=== PATIENT | male | born 1995 | race Two or more races ===

== ENCOUNTER 2018-11-23 20:18 | Emergency (ER) | payer OTHER ==
[2018-11-23 20:29] VITALS: BP 111/72; PULSE 71; TEMP 97.5; BMI 22.1
--- NOTE | 2018-11-23 21:26 | PDOC ---
History of Present Illness - General Chief Complaint: Pain, Acute Stated Complaint: SWOLLEN LT LEG Time Seen by Provider: 11/23/18 21:07 History Source: Patient Exam Limitations: No Limitations Past History - Past Medical History Allergies/Adverse Reactions: Allergies Allergy/AdvReac Type Severity Reaction Status Date / Time No Known Allergies Allergy Verified 09/09/15 11:32 Home Medications: Ambulatory Orders Fluticasone Prop 0.05% Nasal [Flonase -] 1 - 2 spray NS BID #1 spray.pump Loratadine [Claritin] 10 mg PO DAILY #14 tablet 05/01/18 COPD: No - Suicide/Smoking/Psychosocial Hx Smoking Status: No Smoking History: Never smoked Number of Cigarettes Smoked Daily: 0 Hx Alcohol Use: No Drug/Substance Use Hx: No *Physical Exam - Vital Signs Last Vital Signs Temp Pulse Resp BP Pulse Ox 97.5 F L 71 20 111/72 98 11/23/18 20:26 11/23/18 20:26 11/23/18 20:26 11/23/18 20:26 11/23/18 20:26 - Physical Exam General Appearance: No: Apparent Distress Extremity: positive: Normal Range of Motion, Other (Mild L prepatellar swelling , no erythema, no warmth, able to flex and extend L knee, no crepitus, no joint tenderness). negative: Calf Tenderness, Erythema Integumentary: positive: Normal Color. negative: Erythema, Bruising Neurologic: positive: Alert, Other (Normal gait) Moderate Sedation - Procedure Monitoring Vital Signs: Procedure Monitoring Vital Signs Temperature 97.5 F L 11/23/18 20:26 Pulse Rate 71 11/23/18 20:26 Respiratory Rate 20 11/23/18 20:26 Blood Pressure 111/72 11/23/18 20:26 O2 Sat by Pulse Oximetry (%) 98 11/23/18 20:26 Medical Decision Making - Medical Decision Making 23 y/o M presents with L knee swelling x 2-3 hours. Denies trauma to site. Denies fever. Has minimal pain to L knee. Mentions he does play basketball and soccer. Denies other complaints PE consistent with prepatellar bursitis; not concerned for gout or septic arthritis L knee janusz-wrapped patient did not want any pain medications 11/23/18 21:22 *DC/Admit/Observation/Transfer Diagnosis at time of Disposition: Prepatellar bursitis Qualifiers: Laterality: left Qualified Code(s): M70.42 - Prepatellar bursitis, left knee - Discharge Dispostion Disposition: HOME Condition at time of disposition: Stable Decision to Admit order: No - Referrals Referrals: Del Dunn MD [Primary Care Provider] - 3 days - Patient Instructions Printed Discharge Instructions: DI for Bursitis Additional Instructions: Thank you for choosing [facility]. It was a pleasure taking care of you. Recommend using the janusz-wrap to help decrease the swelling. You may take Motrin 600 mg every 4 hours by mouth as needed for mild to moderate pain. Take Motrin with food. The Motrin will also help decrease the swelling. Applying cool compresses and keeping knee elevated above level of heart to help with swelling Return to the Emergency Department if your symptoms worsen or persist, you have fever, redness or warmth to joint or other concerning symptoms. - Post Discharge Activity
== END 2018-11-23 21:35 | disposition home or self-care (01) ==
LOC: JERFT 20:18
DX: M70.42 Prepatellar bursitis, left knee (principal)
CPT/HCPCS: 99281-25

== ENCOUNTER 2019-01-28 14:32 | Emergency (ER) | payer OTHER ==
[2019-01-28 14:42] VITALS: BP 115/70; PULSE 111; TEMP 98.9; BMI 22.1
[2019-01-28] MEDS ORDERED: KETOROLAC TROMETHAMINE 60 MG/2 ML VIAL IM ONE (15:10)
--- NOTE | 2019-01-28 15:13 | PDOC ---
History of Present Illness - General Chief Complaint: Weakness Stated Complaint: FLU SYMPTOMS Time Seen by Provider: 01/28/19 14:49 History Source: Patient Exam Limitations: No Limitations (bodyaches, fever and headache since last night ) - History of Present Illness Associated Symptoms: reports: fever/chills, headaches. denies: cough, nausea/ vomiting Past History - Travel Traveled outside of the country in the last 30 days: No Close contact w/someone who was outside of country & ill: No - Past Medical History Allergies/Adverse Reactions: Allergies Allergy/AdvReac Type Severity Reaction Status Date / Time No Known Allergies Allergy Verified 01/28/19 14:42 Home Medications: Ambulatory Orders NK [No Known Home Medication] 01/28/19 COPD: No Psychiatric Problems: Yes (SCHIZOPHRENIA) - Suicide/Smoking/Psychosocial Hx Smoking Status: No Smoking History: Never smoked Number of Cigarettes Smoked Daily: 0 Hx Alcohol Use: No Drug/Substance Use Hx: No Review of Systems - Review of Systems Is the patient limited Lao proficient: No Constitutional: Yes: Chills, Fever HEENTM: Yes: Throat Pain. No: Ear Discharge, Nose Pain, Nose Congestion, Throat Swelling, Mouth Pain, Difficulty Swallowing, Mouth Swelling Respiratory: Yes: Cough. No: Orthopnea, Shortness of Breath, Wheezing, Productive cough Cardiac (ROS): No: Chest Pain ABD/GI: No: Abdominal Distended, Nausea, Vomiting Musculoskeletal: Yes: Muscle Pain. No: Back Pain Neurological: Yes: Headache. No: Numbness, Paresthesia, Tingling, Weakness, Dizziness *Physical Exam - Vital Signs Last Vital Signs Temp Pulse Resp BP Pulse Ox 98.9 F 111 H 20 115/70 97 01/28/19 14:40 01/28/19 14:40 01/28/19 14:40 01/28/19 14:40 01/28/19 14:40 - Physical Exam General Appearance: Yes: Nourished HEENT: positive: EOMI, JOYCE, Pharyngeal Erythema Neck: positive: Supple Respiratory/Chest: positive: Lungs Clear, Normal Breath Sounds Cardiovascular: positive: Regular Rhythm, Regular Rate, S1, S2, Tachycardia Gastrointestinal/Abdominal: positive: Normal Bowel Sounds, Soft Musculoskeletal: positive: Normal Inspection 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 Patient also would try cough. He denies any nausea vomiting shortness of breath dizziness Rapid strep/flu pending 01/28/19 17:11 Rapid flu and strep neg pt tachycardic in ED, appears dry drank a pitcher of water very fast in ED, pt became nauseous, no vomiting, zofran given Reassessed, was albe to drink again and ate snacks in ED prelim cxr no PNA will discharge 01/28/19 19:53 *DC/Admit/Observation/Transfer Diagnosis at time of Disposition: Viral syndrome - Discharge Dispostion Disposition: HOME Condition at time of disposition: Stable Decision to Admit order: No - Referrals Referrals: Del Dunn MD [Primary Care Provider] - - Patient Instructions Additional Instructions: Your strep and influenza testing was negative today please follow up with your primary care doctor return to the Emergency Department if worsening symptoms occurs - Post Discharge Activity
[2019-01-28] MEDS ORDERED: KETOROLAC TROMETHAMINE 60 MG/2 ML VIAL ONE (15:21)
[2019-01-28] MEDS ORDERED: ONDANSETRON *ODT* 4 MG TABLET SL ONE (16:11)
[2019-01-28] MEDS ORDERED: ONDANSETRON *ODT* 4 MG TABLET ONE (16:14)
== END 2019-01-28 17:25 | disposition home or self-care (01) ==
LOC: JERFT 14:32
PROC: 3E0233Z Introduction of Anti-inflammatory into Muscle, Percutaneous Approach (ICD-10-PCS; principal; 2019-01-28)
DX: B34.9 Viral infection, unspecified (principal)
CPT/HCPCS: 71046-TC-FY; 87070; 87804; 87880; 99281-25; Q0162

== ENCOUNTER 2019-02-28 16:31 | Emergency (ER) | payer OTHER ==
--- NOTE | 2019-02-28 16:38 | PDOC ---
Rapid Medical Evaluation Chief Complaint: RX Refill Time Seen by Provider: 02/28/19 16:35 Medical Evaluation: Allergies Allergy/AdvReac Type Severity Reaction Status Date / Time No Known Allergies Allergy Verified 01/28/19 14:42 02/28/19 16:36 I have performed a brief in person evaluation of the patient. The patient presents with CC: Pt here for Risperdal injection as his psychiatrist is out of town. HPI: See above PE: Skin: Clear, no rash HEENT: Oropharynx clear Lungs: Mild expiratory wheezing Heart: RRR MS: Moves all extremities Neuro: Alert Psych: No SI, No HI The patient will proceed to [facility] for further evaluation. Discharge Disposition - Diagnosis Medication administered - Referrals Referrals: Del Dunn MD [Primary Care Provider] - - Patient Instructions - Post Discharge Activity
--- NOTE | 2019-02-28 16:43 | PDOC ---
History of Present Illness - General Chief Complaint: RX Refill Stated Complaint: INJECTION Time Seen by Provider: 02/28/19 16:35 History Source: Patient - History of Present Illness Initial Comments: See RME note. Pt was given the Risperdal injection by nurse at triage. Pt states his last injection was 2 weeks ago. Pt was held in the ED for 20 minutes and there were no signs of anaphylaxis or allergic reaction. 02/28/19 16:40 Past History - Past Medical History Allergies/Adverse Reactions: Allergies Allergy/AdvReac Type Severity Reaction Status Date / Time No Known Allergies Allergy Verified 01/28/19 14:42 Home Medications: Ambulatory Orders NK [No Known Home Medication] 01/28/19 COPD: No Psychiatric Problems: Yes (SCHIZOPHRENIA) - Suicide/Smoking/Psychosocial Hx Smoking Status: No Smoking History: Never smoked Number of Cigarettes Smoked Daily: 0 Hx Alcohol Use: No Drug/Substance Use Hx: No *DC/Admit/Observation/Transfer Diagnosis at time of Disposition: Medication administered - Discharge Dispostion Disposition: HOME Condition at time of disposition: Good - Referrals Referrals: Del Dunn MD [Primary Care Provider] - - Patient Instructions Printed Discharge Instructions: Schizophrenia Additional Instructions: F/U with your psychiatrist. - Post Discharge Activity
[2019-02-28 16:49] VITALS: BP 106/62; PULSE 71; TEMP 98.2; BMI 20.7
== END 2019-02-28 17:01 | disposition home or self-care (01) ==
LOC: JER 16:31
DX: Z79.899 Other long term (current) drug therapy (principal); F20.9 Schizophrenia, unspecified
CPT/HCPCS: 99281-25

== ENCOUNTER 2019-04-19 17:29 | Emergency (ER) | payer OTHER | END 2019-04-19 18:20 | disposition home or self-care (01) | LOC: JER 17:29 → JERFT 18:20 ==

== ENCOUNTER 2019-10-10 01:46 | Emergency (ER) | payer OTHER ==
[2019-10-10 02:45] VITALS: BP 132/67; PULSE 82; TEMP 98.6; BMI 24.0
--- NOTE | 2019-10-10 03:14 | PDOC ---
*Physical Exam - Vital Signs Last Vital Signs Temp Pulse Resp BP Pulse Ox 98.6 F 82 17 132/67 98 10/10/19 01:46 10/10/19 01:46 10/10/19 01:46 10/10/19 01:46 10/10/19 01:46 Medical Decision Making - Medical Decision Making 10/10/19 03:13 Patient seen by the advanced practice provider under my direct supervision. Ancillary testing reviewed as necessary. I agree with plan as outlined by the advanced practice provider. Discharge - Discharge Information Condition: Fair - Follow up/Referral Referrals: Del Dunn MD [Primary Care Provider] - - Patient Discharge Instructions - Post Discharge Activity
--- NOTE | 2019-10-10 03:18 | PDOC ---
History of Present Illness - General Chief Complaint: Cold Symptoms Stated Complaint: COUGH Time Seen by Provider: 10/10/19 03:08 History Source: Patient - History of Present Illness Initial Comments: 10/10/19 [id number] male complaining of cough for the last week. Patient reports that initially he had a fever denies fever at this time. Overall feeling better except for the frequent cough. Denies chest congestion, wheezing , shortness of breath. Past medical history psychiatric disorder currently on Risperdal Past History - Past Medical History Allergies/Adverse Reactions: Allergies Allergy/AdvReac Type Severity Reaction Status Date / Time No Known Allergies Allergy Verified 10/10/19 02:45 Home Medications: Ambulatory Orders Ibuprofen [Motrin -] 600 mg PO TID PRN 04/19/19 Naproxen [Naprosyn -] 500 mg PO BID #30 tablet 04/19/19 Benzonatate [Tessalon Pearls -] 100 mg PO TID PRN #21 capsule 10/10/19 Guaifenesin [Mucinex -] 600 mg PO BID #14 tablet.er 10/10/19 COPD: No Psychiatric Problems: Yes (SCHIZOPHRENIA) - Psycho Social/Smoking Cessation Hx Smoking Status: No Smoking History: Never smoked Number of Cigarettes Smoked Daily: 0 Information on smoking cessation initiated: No Hx Alcohol Use: No Drug/Substance Use Hx: No Review of Systems - Review of Systems Able to Perform ROS?: Yes Is the patient limited Guyanese proficient: No Constitutional: No: Symptoms Reported, See HPI, Chills, Diaphoresis, Fever, Loss of Appetite, Malaise, Night Sweats, Weakness, Weight Stable, Unintentional Wgt. Loss, Unexplained wgt Loss, Other Respiratory: Yes: Cough. No: Symptoms reported, See HPI, Orthopnea, Shortness of Breath, SOB with Exertion, SOB at Rest, Stridor, Wheezing, Productive cough, Hemoptysis, Other *Physical Exam - Vital Signs Last Vital Signs Temp Pulse Resp BP Pulse Ox 98.6 F 82 17 132/67 98 10/10/19 01:46 10/10/19 01:46 10/10/19 01:46 10/10/19 01:46 10/10/19 01:46 - Physical Exam General Appearance: Yes: Appropriately Dressed HEENT: positive: Normal ENT Inspection Respiratory/Chest: positive: Lungs Clear, Normal Breath Sounds Cardiovascular: positive: Regular Rhythm, Regular Rate Gastrointestinal/Abdominal: positive: Normal Bowel Sounds, Soft. negative: Tender Musculoskeletal: positive: Normal Inspection Extremity: positive: Normal Capillary Refill, Normal Inspection, Normal Range of Motion Integumentary: positive: Normal Color, Dry, Warm Neurologic: positive: Fully Oriented, Alert, Normal Mood/Affect Medical Decision Making - Medical Decision Making UTI with cough P: antitussive/ supportive care Discharge - Discharge Information Problems reviewed: Yes Clinical Impression/Diagnosis: Cough URI (upper respiratory infection) Qualifiers: URI type: unspecified viral URI Qualified Code(s): J06.9 - Acute upper respiratory infection, unspecified Condition: Fair Disposition: HOME - Additional Discharge Information Prescriptions: Benzonatate [Tessalon Pearls -] 100 mg PO TID PRN #21 capsule PRN Reason: Cough Guaifenesin [Mucinex -] 600 mg PO BID #14 tablet.er - Follow up/Referral Referrals: Del Dunn MD [Primary Care Provider] - - Patient Discharge Instructions Patient Printed Discharge Instructions: DI for Common Cold Additional Instructions: Drink plenty of fluids. Take Mucinex as prescribed. Gargle with warm salty water. Drink hot/warm liquids. Taking Tessalon Perles as prescribed for cough. Follow-up with your primary doctor as soon as possible. - Post Discharge Activity Work/Back to School Note: Back to Work
== END 2019-10-10 04:04 | disposition home or self-care (01) ==
LOC: JER 01:46
DX: F20.9 Schizophrenia, unspecified (principal); J06.9 Acute upper respiratory infection, unspecified
CPT/HCPCS: 99281-25

== ENCOUNTER 2020-07-08 17:59 | Emergency (ER) | payer OTHER ==
--- NOTE | 2020-07-08 18:09 | PDOC ---
Rapid Medical Evaluation Time Seen by Provider: 07/08/20 18:07 Medical Evaluation: Allergies Allergy/AdvReac Type Severity Reaction Status Date / Time risperidone [From Risperdal] Allergy Verified 07/08/20 18:06 07/08/20 18:07 24 year old male unknown psych hx complaining of fatigue, extremely poor historian PE: WNL A/P: Differed to provider Pt to precede to ED for further evaluation and treatment.
[2020-07-08 18:15] VITALS: BP 109/71; PULSE 72; TEMP 98.4; BMI 21.8
--- NOTE | 2020-07-08 19:10 | PDOC ---
History of Present Illness - General Chief Complaint: Weakness Stated Complaint: FATIGUE Time Seen by Provider: 07/08/20 18:07 History Source: Patient - History of Present Illness Initial Comments: 07/08/20 20:5 24-year-old male reports fatigue today patient reports that he received a Risperdal IM today. Patient has been getting Risperdal IM every 2 weeks for the last 1 year. Patient reports that his fatigue is due to his home environment. Patient reports fatigue has resolved now since being in the ER. Denies palpitations, chest pain, dizziness, respiratory distress. Patient has a past medical history of psychosis currently in treatment at [facility]. Denies SI and HI Past History - Medical History Allergies/Adverse Reactions: Allergies Allergy/AdvReac Type Severity Reaction Status Date / Time risperidone [From Risperdal] Allergy Verified 07/08/20 18:06 Home Medications: Ambulatory Orders NK [No Known Home Medication] 03/11/20 COPD: No Psychiatric Problems: Yes (SCHIZOPHRENIA) - Psycho-Social/Smoking History Smoking Status: No Smoking History: Never smoked Number of Cigarettes Smoked Daily: 0 - Substance Abuse Hx (Audit-C & DAST Scrn) How often the patient has a drink containing alcohol: Never Score: In Men: 4 or > Positive; In Women: 3 or > Positive: 0 Screen Result (Pos requires Nsg. Audit-10AR): Negative In the last yr the pt used illegal drug/Rx for NonMed reason: No Score: Yes response is considered Positive: 0 Screen Result (Positive result requires Nsg. DAST-10): Negative Review of Systems - Review of Systems Able to Perform ROS?: Yes Is the patient limited Serbian proficient: No Constitutional: Yes: Other (fatigue). No: Symptoms Reported, See HPI, Chills, Diaphoresis, Fever, Loss of Appetite, Malaise, Night Sweats, Weakness, Weight Stable, Unintentional Wgt. Loss, Unexplained wgt Loss Psychiatric: No: Anxiety, Depression, Frequent Crying, Stressors, Sleep Pattern Change, Emotional Problems, Mood Swings, Change in Appetite, Other *Physical Exam - Vital Signs Last Vital Signs Temp Pulse Resp BP Pulse Ox 98.4 F 72 20 109/71 100 07/08/20 18:06 07/08/20 18:06 07/08/20 18:06 07/08/20 18:06 07/08/20 18:06 - Physical Exam General Appearance: Yes: Appropriately Dressed, Other (+ eye contact) Respiratory/Chest: positive: Lungs Clear, Normal Breath Sounds Cardiovascular: positive: Regular Rhythm, Regular Rate Gastrointestinal/Abdominal: positive: Normal Bowel Sounds, Soft. negative: T batool Neurologic: positive: Fully Oriented, Alert ED Treatment Course - LABORATORY CBC & Chemistry Diagram: 07/08/20 20:38 07/08/20 20:38 Medical Decision Making - Medical Decision Making 07/08/20 20:54 A: kayla P: EKG LAbs 07/08/20 20:56 Discharge - Discharge Information Problems reviewed: Yes Clinical Impression/Diagnosis: Fatigue Qualifiers: Fatigue type: unspecified Qualified Code(s): R53.83 - Other fatigue Disposition: HOME - Follow up/Referral Referrals: Velma Lambert MD [Primary Care Provider] - - Patient Discharge Instructions Patient Printed Discharge Instructions: DI for Fatigue Additional Instructions: Please follow-up with your psychiatrist as soon as possible. Return to the emergency room for any worsening symptoms - Post Discharge Activity
--- NOTE | 2020-07-08 19:22 | PDOC ---
*Physical Exam - Vital Signs Last Vital Signs Temp Pulse Resp BP Pulse Ox 98.4 F 72 20 109/71 100 07/08/20 18:06 07/08/20 18:06 07/08/20 18:06 07/08/20 18:06 07/08/20 18:06 ED Treatment Course - LABORATORY CBC & Chemistry Diagram: 07/08/20 20:38 07/08/20 20:38 Medical Decision Making - Medical Decision Making 07/08/20 19:22 Patient seen by the advanced practice provider under my supervision. Ancillary testing reviewed as necessary. I agree with plan as outlined by the advanced practice provider. Discharge - Discharge Information Problems reviewed: Yes Clinical Impression/Diagnosis: Fatigue Qualifiers: Fatigue type: unspecified Qualified Code(s): R53.83 - Other fatigue Disposition: HOME - Follow up/Referral Referrals: Velma Lambert MD [Primary Care Provider] - - Patient Discharge Instructions Patient Printed Discharge Instructions: DI for Fatigue Additional Instructions: Please follow-up with your psychiatrist as soon as possible. Return to the emergency room for any worsening symptoms - Post Discharge Activity
[2020-07-08 21:02] LABS: BASO % 0.5 % (0-2.0); EOS % 1.2 % (0-4.5); HEMATOCRIT 42.9 % (35.4-49); HEMOGLOBIN 14.4 GM/dL (11.7-16.9); LYMPH % 41.9 % (8-40); MCH 29.7 pg (25.7-33.7); MCHC 33.6 g/dl (32.0-35.9); MEAN CELL VOLUME 88.5 fl (80-96); MEAN PLT VOLUME 10.9 fl (7.5-11.1); MONO % 9.2 % (3.8-10.2); NEUT % 47.2 % (42.8-82.8); PLATELET COUNT 135 K/MM3 (134-434); RBC 4.85 M/mm3 (4.00-5.60)
[2020-07-08 21:28] LABS: ALBUMIN 4.4 g/dl (3.4-5.0); BILIRUBIN,TOTAL 0.8 mg/dL (0.2-1); BLOOD UREA NITROGEN 14.4 mg/dL (7-18); CALCIUM 9.5 mg/dL (8.5-10.1); CREATININE 0.8 mg/dL (0.55-1.3); MAGNESIUM 2.3 mg/dL (1.8-2.4); POTASSIUM 3.9 mmol/L (3.5-5.1); TOT PROT 7.9 g/dl (6.4-8.2)
--- NOTE | 2020-07-09 10:05 | EKG ---
Test Reason : Blood Pressure : / mmHG Vent. Rate : 058 BPM Atrial Rate : 058 BPM P-R Int : 128 ms QRS Dur : 088 ms QT Int : 408 ms P-R-T Axes : 048 029 035 degrees QTc Int : 400 ms SINUS BRADYCARDIA OTHERWISE NORMAL ECG NO PREVIOUS ECGS AVAILABLE Confirmed by MD Ru, Jethro ([id number]) on 07/09/2020 10:04:50 AM Referred By: Confirmed By:Jethro Vences MD
== END 2020-07-08 22:30 | disposition home or self-care (01) ==
LOC: JER 17:59 → SUPCPDRO 17:59 → JER 22:30
DX: R53.83 Other fatigue (principal)
CPT/HCPCS: 36415; 80053; 83690; 83735; 85025; 93005; 93010; 99284-25

== ENCOUNTER 2020-07-15 00:16 | Emergency (ER) | payer OTHER ==
[2020-07-15 00:34] VITALS: PULSE 68; TEMP 97.4; BMI 22.1
--- NOTE | 2020-07-15 01:16 | PDOC ---
History of Present Illness - General Chief Complaint: Chest Pain Stated Complaint: CHEST PAIN Time Seen by Provider: 07/15/20 01:10 - History of Present Illness Initial Comments: 07/15/20 01:44 24yo M w/ PMH unspecified schizophrenia on risperidone and trihexylphenidyl p/w chest pain since 8pm tonight. He said the pain started gradually over his sternum and right anterior chest and is now constant at about 4/10 severity. It is a pressure, not made worse or better by anything, and he has never had this before. Denies heart disease, palpitations, HTN, n/v, leg pain, recent travel, fever, cough, rash, or recent illness. Past History - Medical History Allergies/Adverse Reactions: Allergies Allergy/AdvReac Type Severity Reaction Status Date / Time risperidone [From Risperdal] Allergy Verified 07/15/20 00:34 Home Medications: Ambulatory Orders NK [No Known Home Medication] 03/11/20 COPD: No Psychiatric Problems: Yes (SCHIZOPHRENIA) - Psycho-Social/Smoking History Smoking Status: No Smoking History: Never smoked Number of Cigarettes Smoked Daily: 0 Information on smoking cessation initiated: No - Substance Abuse Hx (Audit-C & DAST Scrn) How often the patient has a drink containing alcohol: Never Score: In Men: 4 or > Positive; In Women: 3 or > Positive: 0 Screen Result (Pos requires Nsg. Audit-10AR): Negative In the last yr the pt used illegal drug/Rx for NonMed reason: No Score: Yes response is considered Positive: 0 Screen Result (Positive result requires Nsg. DAST-10): Negative Review of Systems - Review of Systems Able to Perform ROS?: Yes Is the patient limited Malagasy proficient: No Constitutional: No: Chills, Diaphoresis, Fever, Loss of Appetite HEENTM: No: Eye Pain, Blurred Vision, Tearing Respiratory: Yes: Shortness of Breath. No: Cough Cardiac (ROS): No: Chest Pain, Lightheadedness, Palpitations, Syncope ABD/GI: No: Abdominal Distended, Constipated, Diarrhea, Nausea : No: Burning, Dysuria, Discharge Musculoskeletal: Yes: Back Pain Integumentary: No: Erythema, Rash Neurological: Yes: Weakness. No: Headache, Numbness, Paresthesia Endocrine: No: Symptoms Reported *Physical Exam - Vital Signs Last Vital Signs Temp Pulse Resp BP Pulse Ox 97.4 F L 68 18 110/65 99 07/15/20 00:31 07/15/20 00:31 07/15/20 00:31 07/15/20 00:07/15/20 00:31 - Physical Exam General Appearance: Yes: Nourished, Appropriately Dressed, Other (appears nervous) HEENT: positive: JOYCE, Normal Voice, Pharynx Normal. negative: Scleral Icterus (R), Scleral Icterus (L), Muffled/Hoarse voice, Nasal Congestion Neck: positive: Trachea midline, Supple. negative: Tender, Rigidity Respiratory/Chest: positive: Chest Tender, Lungs Clear, Normal Breath Sounds. negative: Respiratory Distress, Accessory Muscle Use, Rapid RR, Decreased Breath Sounds, Crackles, Rales, Rhonchi, Stridor, Wheezing Cardiovascular: positive: Regular Rhythm, Regular Rate, S1, S2 Gastrointestinal/Abdominal: positive: Normal Bowel Sounds. negative: Rebound Musculoskeletal: positive: Normal Inspection. negative: CVA Tenderness, CVA Tenderness (R), CVA Tenderness (L) Extremity: positive: Normal Capillary Refill, Normal Inspection Integumentary: positive: Normal Color, Dry, Warm Neurologic: positive: Fully Oriented, Alert, Motor Strength 5/5, Responsive Medical Decision Making - Medical Decision Making 07/15/20 01:44 07/15/20 01:13 24yo M h/o schizophrenia. On risperidone [id number] started on trihexylphenidyl last week. Had back pain relieved by trihexyphenidyl Recently cut it in half becuase "back pain resolved too quickly" 07/15/20 01:44 07/15/20 01:56 Discharge - Discharge Information Problems reviewed: Yes Clinical Impression/Diagnosis: Chest pain Qualifiers: Chest pain type: unspecified Qualified Code(s): R07.9 - Chest pain, unspecified Condition: Fair - Admission No - Follow up/Referral Referrals: Velma Lambert MD [Primary Care Provider] - - Patient Discharge Instructions Patient Printed Discharge Instructions: DI for Atypical Chest Pain Additional Instructions: You came to the ED with chest pain. We evaluated you and deemed you safe for discharge. Please follow up with your primary care doctor and your psychiatrist tomorrow or within 24hours of leaving the ED. Please come back to the ED with any severe symptoms. - Post Discharge Activity
--- NOTE | 2020-07-15 01:59 | PDOC ---
Documentation entered by Tomasa Syed SCRIBE, acting as scribe for Glenny Thibodeaux MD. Glenny Thibodeaux MD: This documentation has been prepared by the scribe, Tomasa Clements SCRIBE, under my direction and personally reviewed by me in its entirety. I confirm that the documentation accurately reflects all work, treatment, procedures, and medical decision making performed by me. Attending Attestation - Resident Resident Name: Jethro Abrams - ED Attending Attestation I have performed the following: I have examined & evaluated the patient, The case was reviewed & discussed with the resident, I agree w/resident's findings & plan, Exceptions are as noted - HPI HPI: 07/15/20 01:37 The patient is 24 a year old male with a significant PMH of schizophrenia (on risperidone once/motnh, started on trihexylphenidyl last week) who presents to the emergency department for evaluation of R sided non-exertional chest pain 4/10 in intensity. Unable to identify any aggravating or alleviating factors. The patient denies shortness of breath, headache and dizziness. Denies fever, chills, nausea, vomiting, diarrhea and constipation. Denies dysuria, frequency, urgency and hematuria. Allergies: NKA Social history: No reported hx of tobacco use, alcohol use or illicit drug use. - Physicial Exam PE: 07/15/20 01:57 General: very well appearing Chest: CTAB, good air entry, no wheezes rales or rhonchi CVS: + s1s2, RRR Extremities: warm and well perfused, no LE edema - Medical Decision Making 07/15/20 01:58 24 yo M p/w atypical chest pain, no FH sudden cardiac , doubt ACS and EKG without ischemic changes. Also unlikely PE and PERC negative. Likely msk pain. No infectious complaints to suggest PNA. Plan: -pain control as needed -d/c with return precautions, recommend PMD f/u This clinical encounter is taking place during a federal and state health care emergency attributable to the novel [place] Virus pandemic. The [employer] of the Department of Health and Human Services has declared, pursuant to the Public Health Service Act 319F-3 (42 U.S.C. 247d-6d), that a covered persons activities related to medical countermeasures against COVID-19 will be immune from liability under Federal and State law. Discharge - Discharge Information Problems reviewed: Yes Clinical Impression/Diagnosis: Chest pain Qualifiers: Chest pain type: unspecified Qualified Code(s): R07.9 - Chest pain, unspecified Condition: Fair - Follow up/Referral Referrals: Velma Lambert MD [Primary Care Provider] - - Patient Discharge Instructions - Post Discharge Activity
[2020-07-15] MEDS ORDERED: LIDOCAINE 5% TOPICAL PATCH TP ONE (02:20)
[2020-07-15 02:34] VITALS: BP 110/78
--- NOTE | 2020-07-15 10:37 | EKG ---
Test Reason : Blood Pressure : / mmHG Vent. Rate : 056 BPM Atrial Rate : 056 BPM P-R Int : 138 ms QRS Dur : 092 ms QT Int : 418 ms P-R-T Axes : 048 045 049 degrees QTc Int : 403 ms SINUS BRADYCARDIA OTHERWISE NORMAL ECG WHEN COMPARED WITH ECG OF 08-JUL-2020 19:34, NO SIGNIFICANT CHANGE WAS FOUND Confirmed by Prasanna Porter MD ([id number]) on 07/15/2020 10:36:35 AM Referred By: Confirmed By:Prasanna Porter MD
[2020-07-15] MEDS ORDERED: LIDOCAINE PATCH REMOVAL MC SCH (22:00)
== END 2020-07-15 02:34 | disposition home or self-care (01) ==
LOC: JER 00:16
DX: R07.9 Chest pain, unspecified (principal)
CPT/HCPCS: 93005; 93010; 99284-25

== ENCOUNTER 2020-07-26 13:56 | Emergency (ER) | payer OTHER ==
[2020-07-26 14:05] VITALS: BP 119/78; PULSE 78; BMI 24.7
--- NOTE | 2020-07-26 14:39 | PDOC ---
Attending Attestation - Resident Resident Name: Prasanna Perera - HPI HPI: 07/26/20 16:02 Pt presents to the ED complaining of feeling "disconnected" after he gets his biweekly risperdone shots. THe patient has a history of schizophrenia, and has been getting the shots for several months. He states that he has not discussed his concerns with his psychiatrist. He is asking for a change to his medication or dosage. Denies HI, SI or hallucinations. - Physicial Exam PE: 07/26/20 16:07 Agree with resident exam. PAtient is alert and in no acute distress. He is ambulatory in the ED with normal gait. He is slightly anxious, and has mild pressured speech. He is well groomed and goal directed in his thought processes. He denies SI, HI or auditory hallucinations. - Medical Decision Making 07/26/20 16:10 Pt presents to the ED complaining of feeling disconnected after depo risperdal given. The patient has no SI, HI or psychosis. Since he does not have a psychiatric emergency, we will refer him for pyschiatric follow up. Will instruct to return to the ED immediately for worsening symptoms. Discharge - Discharge Information Problems reviewed: Yes Clinical Impression/Diagnosis: Anxiety Schizophrenia Qualifiers: Schizophrenia type: unspecified Qualified Code(s): F20.9 - Schizophrenia, unspecified Condition: Stable Disposition: HOME - Follow up/Referral Referrals: Elsy Asif MD [Staff Physician] - Daly Schuster MD [Staff Physician] - Velma Lambert MD [Primary Care Provider] - - Patient Discharge Instructions Patient Printed Discharge Instructions: DI for Anxiety -- Adult, DI for Schizophrenia Additional Instructions: Please call your psychiatrist today and schedule a follow up appointment with them to discuss your concerns about the medications. Please continue taking your medications as prescribed. If you experience any new, worsening, or concerning symptoms, including thoughts of hurting yourself, hurting someone else, or any other concerns, please return to the emergency department immediately. - Post Discharge Activity Work/Back to School Note: My Personal Safety Plan
--- NOTE | 2020-07-26 15:09 | PDOC ---
History of Present Illness - General Chief Complaint: Psychiatric Stated Complaint: EVALUATION Time Seen by Provider: 07/26/20 14:38 - History of Present Illness Initial Comments: Matt Barr is a 25 y/o male with PMH significant for schizophrenia presenting today with concerns for psychomotor retardation, lethargy, fatigue. Reports that he was hospitalized for psych in April of this year and was diagnosed with schizophrenia. Reports that he was started on long-acting risperidone 25 mg [id number] since May. He is presenting today because he feels that his medications are causing him to feel fatigued, low energy, difficulty concentrating. Denies anxiety. Reports that he has not been as motivated to do activities but is able to care for himself. Lives at home with parents and sisters but "does not get along with them." Reports that he is upset at his mother for hospitalizing him in April. Feels that his psychiatrist does not listen to him and has an appt with a new one in 1 month. Denies SI/HI. Able to perform ADLs. Denies ETOH/smoking/drug use. Past History - Medical History Allergies/Adverse Reactions: Allergies Allergy/AdvReac Type Severity Reaction Status Date / Time risperidone [From Risperdal] AdvReac Verified 07/26/20 14:00 Home Medications: Ambulatory Orders Risperidone Microspheres [Risperdal Consta] 25 mg IM ASDIR 07/26/20 Trihexyphenidyl HCl 1 mg PO ASDIR 07/26/20 COPD: No Psychiatric Problems: Yes (SCHIZOPHRENIA) - Psycho-Social/Smoking History Smoking Status: No Smoking History: Unknown if ever smoked Number of Cigarettes Smoked Daily: 0 - Substance Abuse Hx (Audit-C & DAST Scrn) How often the patient has a drink containing alcohol: Never Score: In Men: 4 or > Positive; In Women: 3 or > Positive: 0 Screen Result (Pos requires Nsg. Audit-10AR): Negative In the last yr the pt used illegal drug/Rx for NonMed reason: No Score: Yes response is considered Positive: 0 Screen Result (Positive result requires Nsg. DAST-10): Negative Review of Systems - Review of Systems Comments:: GENERAL/CONSTITUTIONAL: No fever or chills. No weakness._ HEAD, EYES, EARS, NOSE AND THROAT: No change in vision. No change in hearing. No sore throat._ CARDIOVASCULAR: No chest pain or shortness of breath_ RESPIRATORY: Denies cough, hemoptysis_ MUSCULOSKELETAL: No joint or muscle swelling or pain. No neck or back pain._ SKIN: No rash_ NEUROLOGIC: No headache, vertigo, loss of consciousness, or change in strength/sensation._ ENDOCRINE: No increased thirst. No abnormal weight change_ ALLERGIC/IMMUNOLOGIC: No hives or skin allergy._ PSYCH: Reports psychomotor retardation, fatigue, difficulty concentrating. *Physical Exam - Vital Signs Last Vital Signs Temp Pulse Resp BP Pulse Ox 78 18 119/78 100 07/26/20 14:01 07/26/20 14:01 07/26/20 14:01 07/26/20 14:01 - Physical Exam GENERAL: Awake, alert, and oriented to person/place/time, in no acute distress_ HEAD: No signs of trauma, normocephalic, atraumatic _ ENT: Hearing grossly normal, nares patent, oropharynx clear without exudates. No uvular deviation. Moist mucosa_ LUNGS: No distress, speaks in full sentences, clear to auscultation bilaterally _ HEART: Regular rate and rhythm, normal S1 and S2, no murmurs appreciated, peripheral pulses normal and equal bilaterally._ ABDOMEN: Soft, nontender, normoactive bowel sounds. No guarding, no rebound. No masses_ EXTREMITIES: Normal inspection, Normal range of motion, no edema. No clubbing or cyanosis_ NEUROLOGICAL: Cranial nerves II through XII grossly intact. Normal speech, normal gait, no focal sensorimotor deficits _ SKIN: Warm, Dry, normal turgor, no rashes or lesions noted_ PSYCH: Appearance: Well kempt Behavior: Calm, good eye contact, in no acute distress Mood: tired, unable to concentrate Affect: Mood is congruent with affect. Speech: Appropriate rate, quantity. Soft. Thought process: Linear Thought content: Concerned about risperidone side effects making him tired and not as active. Denies SI/HI. Paranoid about mother and psychiatrist. Denies suicidal ideation/homicidal ideation. Cognition: Normal Insight: Poor Judgment: Good Medical Decision Making - Medical Decision Making 07/26/20 15:17 This is a 25 y/o male, recently hospitalized in April for psych, dx with schizophrenia, and started on risperidone long acting IM injections 25 mg q2 weeks in mid May. Comes in today reporting psychomotor retardation and le thargy, but is observed to be anxious, restless, and repeatedly getting up from the bed. No SI/HI. Able to care for himself at home. Lives with mom/dad/sister. Able to cook for himself and do laundry. Looking for a job. Pt would like a second opinion about his medication side effects and is paranoid about his psychiatrist. Will provide outpatient psych referrals and instructions to call his psychiatrist today to discuss medication side effects. Pt is safe for discharge at this time and able to care for himself. Plan to d/c home with psych f/u. All questions answered. Return precautions given. Pt verbalized understanding and agreement with plan. Discharge - Discharge Information Problems reviewed: Yes Clinical Impression/Diagnosis: Anxiety Schizophrenia Qualifiers: Schizophrenia type: unspecified Qualified Code(s): F20.9 - Schizophrenia, unspecified Condition: Stable Disposition: HOME - Admission No - Follow up/Referral Referrals: Elsy Asif MD [Staff Physician] - Daly Schuster MD [Staff Physician] - Velma Lambert MD [Primary Care Provider] - - Patient Discharge Instructions Patient Printed Discharge Instructions: DI for Anxiety -- Adult, DI for Schizophrenia Additional Instructions: Please call your psychiatrist today and schedule a follow up appointment with them to discuss your concerns about the medications. Please continue taking your medications as prescribed. If you experience any new, worsening, or concerning symptoms, including thoughts of hurting yourself, hurting someone else, or any other concerns, please return to the emergency department immediately. - Post Discharge Activity Work/Back to School Note: My Personal Safety Plan
== END 2020-07-26 15:20 | disposition home or self-care (01) ==
LOC: JER 13:56
DX: F20.9 Schizophrenia, unspecified (principal)
CPT/HCPCS: 99284-25

== ENCOUNTER 2020-08-17 18:50 | Emergency (ER) | payer OTHER ==
[2020-08-17 19:00] VITALS: BP 114/66; PULSE 62; TEMP 97.8; BMI 21.9
--- OUTSIDE RECORDS SUMMARY | 2020-08-17 19:09 | XMS ---
:1995 Author Organization [facility] Care Team Providers Name Role Phone ED STAFF PHYSICIANAISLINN Unavailable Unavailable Craig Vences MD Unavailable Unavailable La Vences MD Unavailable Unavailable La Vences MD Unavailable Unavailable La Vences MD Unavailable Unavailable La Vences MD Unavailable Unavailable La Vences MD Unavailable Unavailable La Vencse MD Unavailable Unavailable La Vences MD Unavailable Unavailable La Vences MD Unavailable Unavailable La Vences MD Unavailable Unavailable La Vences MD Unavailable Unavailable La Vences MD Unavailable Unavailable La Vences MD Unavailable Unavailable La Vences MD Unavailable Unavailable La Vences MD Unavailable Unavailable La Vences MD Unavailable Unavailable La Vences MD Unavailable Unavailable La Vences MD Unavailable Unavailable La Vences MD Unavailable Unavailable La Vences MD Unavailable Unavailable La Vences MD Unavailable Unavailable La Vences MD Unavailable Unavailable Vences, B Unavailable Unavailable Vences, B Unavailable Unavailable Vences, B MD Unavailable Unavailable Vences, B MD Unavailable Unavailable Vences, B MD Unavailable Unavailable Vences, B MD Unavailable Unavailable Vences, B MD Unavailable Unavailable Vences, B MD Unavailable Unavailable Vences, B MD Unavailable Unavailable Vences, B MD Unavailable Unavailable Vences, B MD Unavailable Unavailable Vences, B MD Unavailable Unavailable Vences, B MD Unavailable Unavailable Vences, B MD Unavailable Unavailable Vences, B MD Unavailable Unavailable Vences, B MD Unavailable Unavailable Vences, B MD Unavailable Unavailable Vecnes, B MD Unavailable Unavailable Vences, B MD Unavailable Unavailable Vences, B MD Unavailable Unavailable Vences, B MD Unavailable Unavailable Vences, B MD Unavailable Unavailable Vences, B MD Unavailable Unavailable Vences, B MD Unavailable Unavailable Vences, B MD Unavailable Unavailable Vences, B MD Unavailable Unavailable Vences, B MD Unavailable Unavailable Vences, B MD Unavailable Unavailable Vences, B MD Unavailable Unavailable Vences, B MD Unavailable Unavailable Vences, B MD Unavailable Unavailable Vences, B MD Unavailable Unavailable Vences, B MD Unavailable Unavailable Vences, B MD Unavailable Unavailable Vences, B MD Unavailable Unavailable Vences, B MD Unavailable Unavailable Vences, B Unavailable Unavailable Vences, B Unavailable Unavailable Vences, B Unavailable Unavailable Vences, B Unavailable Unavailable Vences, B Unavailable Unavailable Vences, B MD Unavailable Unavailable Vences, B MD Unavailable Unavailable Vences, B Unavailable Unavailable TAMY Unavailable Unavailable Maria De Jesus HICKMAN MD Unavailable Unavailable Maria De Jesus HICKMAN MD Unavailable Unavailable Maria De Jesus HICKMAN MD Unavailable Unavailable ED STAFF PHYSICIAN Unavailable Unavailable MD SONAM Unavailable Unavailable ED STAFF PHYSICIAN Unavailable Unavailable MD ALICIA Unavailable Unavailable Shanna Gomez DNP Unavailable Unavailable Shanna Gomez DNP Unavailable Unavailable Shanna Gomez DNP Unavailable Unavailable Shanna Gomez DNP Unavailable Unavailable ZUNASSIGNED Unavailable Unavailable KODY Morales Unavailable Unavailable Re-disclosure Warning The records that you are about to access may contain information from federally- assisted alcohol or drug abuse programs. If such information is present, then the following federally mandated warning applies: This information has been disclosed to you from records protected by federal confidentiality rules (42 CFR part 2). The federal rules prohibit you from making any further disclosure of this information unless further disclosure is expressly permitted by the written consent of the person to whom it pertains or as otherwise permitted by 42 CFR part 2. A general authorization for the release of medical or other information is NOT sufficient for this purpose. The Federal rules restrict any use of the information to criminally investigate or prosecute any alcohol or drug abuse patient.The records that you are about to access may contain highly sensitive health information, the redisclosure of which is protected by Article 27-F of the [facility] Public Health law. If you continue you may haveaccess to information: Regarding HIV / AIDS; Provided by facilities licensed or operated by the [facility] Office of Mental Health; or Provided by the [facility] Office for People With Developmental Disabilities. If such information is present, then the following [facility] mandated warning applies: This information has been disclosed to you from confidential records which are protected by state law. State law prohibits you from making any further disclosure of this information without the specific written consent of the person to whom it pertains, or as otherwise permitted by law. Any unauthorized further disclosure in violation of state law may result in a fine or nursing home sentence or both. A general authorization for the release of medical or other information is NOT sufficient authorization for further disclosure. Allergies and Adverse Reactions Type Description Substance Reaction Status Data Source(s ) Drug allergy No Known Allergies No Known NO KNOWN ALLERG [place] [facility] Encounters Encounter Providers Location Date Indications Data Source(s ) Inpatient Attender: STACI ALAS-3N 07/27/2020 [facility] FAEZAttender: 10:30:00 PM EDT Hospit al AGA HICKMAN - 08/08/2020 MDAdmitter: Craig 11:01:00 PM EDT Ru ESCALANTE Patient discharged. Outpatient [facility] 07/27/2020 08:28:00 PM EDT - [address] [place] [address] 11:43:00 PM EDT Patient discharged. Emergency Attender: SEVEN ED STAFF H 07/27/2020 10:38:00 AM [facility] PHYSICIANAttender: STAFF ED EDT - 07/27/2020 [facility] STAFF PHYSICIANAdmitter: SEVEN 09:31:00 PM EDT ED STAFF PHYSICIANReferrer: ZUNASSIGNED Patient discharged. Outpatient ST 2020 06:08:00 PM EDT [facility] Admission cancelled. Disregard status an d admitted date. Outpatient Attender: Lisa STV 07/01/2020 [facility] Noa Gomez DNPAdmitter: 02:05:00 PM EDT H ospital [facility] Emergency Attender: Des 06/12/2020 [facility] it[facility]iana Hernandezto 01:16:00 PM EDT - AM.[facility] ones[facility] 06/12/2020 04:58:00 PM EDT GENERAL ILLNESS AM.SARWAT Patient discharged. Inpatient Attender: AGAGORAN HICKMAN STV-3N 05/13/2020 03:09:00 PM [facility] MDAdmitter: ELENA EDT - 06/24/2020 H [facility]spital ALICIA 10:24:00 PM EDT Patient discharged. Outpatient ST 05/13/2020 02:38:00 PM EDT - [address] [place] [address] 02:35:00 PM EDT Patient discharged. Emergency Attender: AISLINN ED STAFF H 05/12/2020 08:22:00 PM [facility] PHYSICIANAttender: STAFF ED EDT - 05/13/2020 [facility] Center STAFF PHYSICIANAdmitter: 04:52:00 PM EDT AISLINN ED STAFF PHYSICIAN Patient discharged. Unlisted evaluation and 03/14/2019 04:28:00 PM EDT [facility] (Mental Health management service - 04/25/2019 03:15:00 PM [facility]) EDT Unlisted evaluation and 07/20/2018 04:00:00 AM EDT [facility] (Mental Health management service [facility]) Medications Medication Brand Start Product Dose Route Administrative Pharmacy [facility] Indications Reaction Description Data Name Date Form Instructions Instructions Source(s) Trihexyphen Trihex ORAL complet Trihex ypheni [facility] idyl ypheni 2019 Table ed dyl HCl - 2 Alcides nts Hydrochlori dyl 12:00: t MG ORAL Hos pital de 2 MG HCl - 00 AM Tablet Oral Tablet 2 MG EDT ORAL Tablet Risperidone Risper INTRAM complet Risp erDAL [facility] 12.5 MG/ML 2019 Eliza USCULA ed Consta - [facility] Injectable Consta 12:00: gram R MG Hospi onesimo Suspension - 00 AM INTRAMUSCULA [Risperdal] MG EDT R Powder for INTRAM Suspension, USCULA Extended R Release Powder for Suspen erik, Extend ed Releas e Risperidone Risper 37.5 INTRAM complet Risp erDAL [facility] 18.8 MG/ML 2019 Eliza USCULA ed Consta - Vi ncents Injectable Consta 12:00: gram R 37.5 MG Ho spital Suspension - 37.5 00 AM INTRAMUSCUL A [Risperdal] MG EDT R Powder for INTRAM Suspension, USCULA Extended R Release Powder for Suspen erik, Extend ed Releas e Risperidone risper ORAL complet risper iDONE [facility] 3 MG Oral iDONE 2019 Table ed - 3 MG ORAL V incents Tablet - 3 MG 12:00: t Tablet Hospita l ORAL 00 AM Tablet EDT Risperidone Risper INTRAM complet Risp erDAL [facility] 25 MG/ML 2019 Eliza USCULA ed Consta - 50 V incents Injectable Consta 12:00: gram R MG Hospi onesimo Suspension - 50 00 AM INTRAMUSCULA [Risperdal] MG EDT R Powder for INTRAM Suspension, USCULA Extended R Release Powder for Suspen erik, Extend ed Releas e benztropine Benztr .0 Oral active NE TSMART mesylate 1 opine 2019 Table (Mental MG Oral Mesyla 05:00: t Health Tablet te 00 AM Associatio EST n of Debbie r) Risperidone risper .0 Oral active NE TSMART 2 MG Oral iDONE 2019 Table (Mental Tablet 05:00: t Health 00 AM Associatio EST n of Debbie r) Cholecalcif D3-50 .0 Oral active NET Bandtastic stevie 99693 2018 Capsu (Mental UNT Oral 05:00: le Health Capsule 00 AM Associatio EST n of Debbie r) benztropine Benztr .0 Oral active NE TSMART mesylate 1 opine 2018 Table (Mental MG Oral Mesyla 05:00: t Health Tablet te 00 AM Associatio EST n of Debbie r) Risperidone risper 1.0 Oral active NE TSMART 2 MG Oral iDONE 2018 Table (Mental Tablet 05:00: t Health 00 AM Associatio EST n of Debbie r) Risperidone risper 1.0 Oral active NE TSMART 4 MG Oral iDONE 2019 Table (Mental Tablet 04:00: t Health 00 AM Associatio EDT n of [facility]) benztropine Benztr 1.0 Oral active NE TSMART mesylate 1 opine 2019 Table (Mental MG Oral Mesyla 04:00: t Health Tablet te 00 AM Associatio EDT n of [facility]) Risperidone Risper 04/11/ 37.5 Intram active NETSMART 18.8 MG/ML 2018 Eliza uscula (Menta l Injectable Consta 04:00: gram r Healt h Suspension 00 AM Associat io [Risperdal] EDT n of [facility]) benztropine Benztr 1.0 Oral active NE TSMART mesylate 1 opine 2019 Table (Mental MG Oral Mesyla 04:00: t Health Tablet te 00 AM Associatio EDT n of [facility]) Cholecalcif D3-50 .0 Oral active NET SMART stevie [id number] 2018 Capsu (Mental UNT Oral 04:00: le Health Capsule 00 AM Associatio EDT n of [facility]) Sertraline Sertra ORAL complet Sertral ine [facility] 100 MG Oral line 2017 Table ed HCl - 100 MG [facility] Tablet HCl - 12:00: t ORAL Tablet Hos pital 100 MG 00 AM ORAL EDT Tablet Risperidone Risper INTRAM complet Risp erDAL [facility] 25 MG/ML 2017 Eliza USCULA ed Consta - 50 V incents Injectable Consta 12:00: gram R MG Hospi onesimo Suspension - 50 00 AM INTRAMUSCULA [Risperdal] MG EDT R Powder for INTRAM Suspension, USCULA Extended R Release Powder for Suspen erik, Extend ed Releas e benztropine Benztr 06/14/ ORAL complet S aint mesylate opine 2018 ed [facility] 0.5 MG Oral Mesyla 12:00: Hosp ital Tablet te - 00 AM 0.5 MG EDT ORAL Tablet No known complet [facility] Insurance Providers Payer name Policy type Policy ID Covered Covered libertarian's Policy P andre / Coverage libertarian ID relationship to [place] [facility] or[facility] type [place] LOCAL [id number] CHILD [id number] [facility] SELF PAY 0000 Self 0000 MEDICAID IN [id number] Self [id number] J PSYCH [facility] MVP [id number] Self [id number] [employer]AN [id number] (PS) [id number] Son [id number] LOCAL [id number] Son [id number] [employer] FUN[employer] MEDICAID OP [id number] Self [id number] SELF PAY 0000 Self 0000 LOCAL 1199 [id number] Son [id number] [employer]ENEFIT FUND MVP/HHP O [id number] 01 [id number] O [facility] ER VISIT O [facility] 01 [facility] INPATIENT MEDICAID INP [id number] Self [id number] J PSYCH SELF PAY [id number] Son [id number] LOCAL [id number] [place] [id number] 1 [id number] Problems, Conditions, and Diagnoses Code Display Name Description Problem Type Effective Data Dates Source(s) [id number] Disorganized Disorganized Complaint 07/01/2020 [facility] schizophrenia schizophrenia 12:00:00 PM [facility] (disorder) [facility] [id number] Disorganized Disorganized Complaint 07/01/2020 [facility] schizophrenia schizophrenia 12:00:00 PM [facility] (disorder) [facility] [id number] Disorganized Disorganized Complaint 07/01/2020 [facility] schizophrenia schizophrenia 12:00:00 PM [facility] (disorder) [facility] [id number] Disorganized Disorganized Complaint 07/01/2020 [facility] schizophrenia schizophrenia 12:00:00 PM [facility] (disorder) [facility] F20.9 Schizophrenia, SCHIZOPHRENIA, Diagnosis 07/27/2020 [facility] unspecified UNSPECIFIED 10:38:00 AM [facility] F91.9 Conduct disorder, CONDUCT DISORDER, Diagnosis 07/27/2020 [facility] unspecified UNSPECIFIED 10:38:00 AM [facility] Z11.59 Encounter for Z11.59 Diagnosis 06/12/2020 [place] screening for other 02:27:00 PM Hosp ital viral diseases EDT F20.9 Schizophrenia, F20.9 Diagnosis 06/12/2020 [place] unspecified 02:27:00 PM Hospital EDT R06.00 Dyspnea, unspecified R06.00 Diagnosis 06/12/2020 [facility] [place] 02:27:00 PM Hospital EDT R07.89 Other chest pain R07.89 Diagnosis 06/12/[address] [place] 02:27:00 PM Hospital EDT F20.81 Schizophreniform Schizophreniform Diagnosis 06/14/2018 [facility] int disorder disorder 08:54:00 AM [facility] Surgeries/Procedures Procedure Description Date Indications Data Source(s) Diagnostic radiography of 06/12/2020 [facility] [place] chest, combined 12:00:00 AM Hospital posteroanterior and lateral EDT (procedure) Electrocardiographic procedure 06/12/2020 [place] (procedure) 12:00:00 AM Hospital EDT Results ID Date Data Source [id number] 07/29/2020 12:00:00 AM EDT [facility] Name Value Range Interpretation Code Description Data Alyssa rce(s) Supporting Document(s ) 2019-nCoV [facility] RNA XXX GINA+probe- Imp This lab was ordered by [facility] and reported by [employer]. ID Date Data Source Liver 07/27/2020 11:49:[address] [facility] Profile.[id number] Name Value Range Interpretation Description Data Sup porting Code Source(s) Document(s ) Alanine 7-50 <content [facility] aminotransferase styleCode="Bold"> Sg hs [Enzymatic Alanine Medical activity/volume] Aminotransferase Center in Serum or Plasma (ALT) </content>18 IU/L<content styleCode="Italic s"> (7-50 IU/L)</content> Aspartate 17-59 <content [facility] aminotransferase styleCode="Bold"> Sg hs [Enzymatic Aspartate Medical activity/volume] Aminotransferase Center in Serum or Plasma (AST) </content>23 IU/L<content styleCode="Italic s"> (17-59 IU/L)</content> Alkaline 38-126 <content [facility] phosphatase styleCode="Bold"> Art [Enzymatic Alkaline Medical activity/volume] Phosphatase (ALP) Cente r in Serum or Plasma </content>56 IU/L<content styleCode="Italic s"> (38-126 IU/L)</content> Bilirubin.total 0.2-1.3 <content [facility] [Mass/volume] in styleCode="Bold"> Sg hs Serum or Plasma Bilirubin Total Medical </content>0.7 Center MG/DL<content styleCode="Italic s"> (0.2-1.3 MG/DL)</content> UNK 0.0-0.3 <content [facility] styleCode="Bold"> Art Bilirubin, Direct Medical </content>< 0.2 Center MG/DL<content styleCode="Italic s"> (0.0-0.3 MG/DL)</content> Albumin 3.5-5.0 <content [facility] [Mass/volume] in styleCode="Bold"> Sg hs Serum or Plasma Albumin Medical </content>4.7 Center G/DL<content styleCode="Italic s"> (3.5-5.0 G/DL)</content> ID Date Data Source HematologyRou.[id number] 07/27/2020 11:49:00 AM EDT [facility] 0400 Name Value Range Interpretation Description Data Sup porting Code Source(s) Document(s ) Erythrocytes 4.4-5.9 <content [facility] [#/volume] in styleCode="Bold Art Blood by ">Red Blood Medical Automated count Cell Count Center </content>5.01 MCUMM<content styleCode="Ital ics"> (4.4-5.9 MCUMM)</content > Hemoglobin 13.5-17. <content [facility] [Mass/volume] in 5 styleCode="Bold Art Blood ">Hemoglobin Medical </content>14.9 Center G/DL<content styleCode="Ital ics"> (13.5-17.5 G/DL)</content> Leukocytes 4.4-11.0 <content [facility] [#/volume] in styleCode="Bold Art Blood by ">White Blood Medical Automated count Cell Count Center </content>5.61 KCUMM<content styleCode="Ital ics"> (4.4-11.0 KCUMM)</content > Erythrocyte mean 80.0-100 <content [facility] corpuscular .0 styleCode="Bold Art volume [Entitic ">Mean Medical volume] by Corpuscular Center Automated count Volume </content>89.4 FL<content styleCode="Ital ics"> (80.0-100.0 FL)</content> Hematocrit 41.0-53. <content [facility] [Volume 0 styleCode="Bold Art Fraction] of ">Hematocrit Medical Blood by </content>44.8 Center Automated count %<content styleCode="Ital ics"> (41.0-53.0 %)</content> Erythrocyte mean 26.0-34. <content [facility] corpuscular 0 styleCode="Bold Art hemoglobin ">Mean Medical [Entitic mass] Corposcular Center by Automated Hemoglobin count </content>29.7 PG<content styleCode="Ital ics"> (26.0-34.0 PG)</content> Platelets 130-400 <content [facility] [#/volume] in styleCode="Bold Art Blood by ">Platelet Medical Automated count Count Center </content>147 KCUMM<content styleCode="Ital ics"> (130-400 KCUMM)</content > Erythrocyte mean 32.0-37. <content [facility] corpuscular 0 styleCode="Bold Art hemoglobin ">Mean Corpus. Medical concentration Hgb Center [Mass/volume] by Concentration Automated count (MCHC) </content>33.3 G/DL<content styleCode="Ital ics"> (32.0-37.0 G/DL)</content> Erythrocyte 11.5-14. <content [facility] distribution 5 styleCode="Bold Art width [Ratio] by ">Red Cell Medical Automated count Distribution Center Width </content>13.7 %<content styleCode="Ital ics"> (11.5-14.5 %)</content> UNK 0 <content Saint styleCode="Bold Art ">Nucleated Red Medical Blood Cell Center </content>0.0 /100<content styleCode="Ital ics"> (0 /100)</content> UNK 0.0 <content Saint styleCode="Bold Art ">Nucleated Red Medical Blood Cell Center Count </content>0.00 KCUMM<content styleCode="Ital ics"> (0.0 KCUMM)</content > Platelet mean 8.0-11.0 Above high <content [facility] volume [Entitic normal styleCode="Bold Art volume] in Blood ">Mean Platelet Medical by Automated Volume Center count </content>12.3 FL H<content styleCode="Ital ics"> (8.0-11.0 FL)</content> ID Date Data Source GFR(Creatinine).[id number] 07/27/2020 11:49:00 AM EDT [facility] 0-0400 Name Value Range Interpretation Code Description Data Alyssa rce(s) Supporting Document(s ) UNK > 60 <content [facility] styleCode="Bold"> Medical Cent er EGFR </content>147 GFR<content styleCode="Italic s"> (> 60 GFR)</content> ID Date Data Source [id number] 07/27/2020 11:49:00 AM EDT [facility] Center Name Value Range Interpretation Description Data Sup porting Code Source(s) Document(s ) Chloride 98-107 <content [facility] [Moles/volume] in styleCode="Bold"> [facility] Serum or Plasma Chloride Medical </content>105 Center MEQ/L<content styleCode="Italic s"> (98-107 MEQ/L)</content> Sodium 137-145 <content [facility] [Moles/volume] in styleCode="Bold"> [facility] Serum or Plasma Sodium Medical </content>138 Center MEQ/L<content styleCode="Italic s"> (137-145 MEQ/L)</content> Potassium 3.5-5.3 <content [facility] [Moles/volume] in styleCode="Bold"> [facility] Serum or Plasma Potassium Medical </content>4.3 Center MEQ/L<content styleCode="Italic s"> (3.5-5.3 MEQ/L)</content> Calcium 8.4-10. <content [facility] [Mass/volume] in 2 styleCode="Bold"> Sg hs Serum or Plasma Calcium Medical </content>10.0 Center MG/DL<content styleCode="Italic s"> (8.4-10.2 MG/DL)</content> UNK 9-20 <content [facility] styleCode="Bold"> [facility] BUN </content>13 Medical MG/DL<content Center styleCode="Italic s"> (9-20 MG/DL)</content> Carbon dioxide, 22-30 <content [facility] total styleCode="Bold"> Art [Moles/volume] in Carbon Dioxide Medical Serum or Plasma </content>25 Center MEQ/L<content styleCode="Italic s"> (22-30 MEQ/L)</content> Glucose 74-106 <content [facility] [Mass/volume] in styleCode="Bold"> Sg hs Serum or Plasma Glucose Medical </content>98 Center MG/DL<content styleCode="Italic s"> (74-106 MG/DL)</content> Creatinine 0.5-1.3 <content [facility] [Mass/volume] in styleCode="Bold"> Sg hs Serum or Plasma Creatinine Medical </content>0.7 Center MG/DL<content styleCode="Italic s"> (0.5-1.3 MG/DL)</content> UNK > 60 <content [facility] styleCode="Bold"> Art EGFR Medical </content>147 Center GFR<content styleCode="Italic s"> (> 60 GFR)</content> Alanine 7-50 <content [facility] aminotransferase styleCode="Bold"> Sg hs [Enzymatic Alanine Medical activity/volume] Aminotransferase Center in Serum or Plasma (ALT) </content>18 IU/L<content styleCode="Italic s"> (7-50 IU/L)</content> Aspartate 17-59 <content [facility] aminotransferase styleCode="Bold"> Sg hs [Enzymatic Aspartate Medical activity/volume] Aminotransferase Center in Serum or Plasma (AST) </content>23 IU/L<content styleCode="Italic s"> (17-59 IU/L)</content> Bilirubin.total 0.2-1.3 <content [facility] [Mass/volume] in styleCode="Bold"> Sg hs Serum or Plasma Bilirubin Total Medical </content>0.7 Center MG/DL<content styleCode="Italic s"> (0.2-1.3 MG/DL)</content> Albumin 3.5-5.0 <content [facility] [Mass/volume] in styleCode="Bold"> Sg hs Serum or Plasma Albumin Medical </content>4.7 Center G/DL<content styleCode="Italic s"> (3.5-5.0 G/DL)</content> Alkaline 38-126 <content [facility] phosphatase styleCode="Bold"> Art [Enzymatic Alkaline Medical activity/volume] Phosphatase (ALP) Cente r in Serum or Plasma </content>56 IU/L<content styleCode="Italic s"> (38-126 IU/L)</content> ID Date Data Source Urinalysis.[id number] 07/27/2020 11:30:00 AM EDT [facility] 0 Name Value Range Interpretation Description Data Sup porting Code Source(s) Document(s ) UNK CLEAR <content [facility] styleCode="Alberta Art d">Urine Medical Clarity Center </content>STEVE R <content styleCode="Josy lics"> (CLEAR )</content> Color of Urine YELLOW <content [facility] styleCode="Alberta Art d">Color, Medical Urine Center </content>YELL OW <content styleCode="Josy lics"> (YELLOW )</content> Glucose NEGATIVE <content [facility] [Mass/volume] styleCode="Alberta Robbs in Urine by d">Urine Medical Test strip Glucose Center </content>NEGA TIVE MG/DL<content styleCode="Josy lics"> (NEGATIVE MG/DL)</conten t> Ketones NEGATIVE <content [facility] [Mass/volume] styleCode="Alberta Robbs in Urine by d">Urine Medical Test strip Ketone Center </content>NEGA TIVE MG/DL<content styleCode="Josy lics"> (NEGATIVE MG/DL)</conten t> Hemoglobin NEGATIVE <content [facility] [Presence] in styleCode="Alberta Robbs Urine by Test d">Urine Blood Medical strip </content>NEGA Center TIVE <content styleCode="Josy lics"> (NEGATIVE )</content> UNK NEGATIVE <content Saint styleCode="Alberta Art d">Urine Medical Bilirubin Center </content>NEGA TIVE <content styleCode="Josy lics"> (NEGATIVE )</content> Specific 1.015-1.02 <content [facility] gravity of 5 styleCode="Alberta Robbs Urine by Test d">Urine Medical strip Specific Center Freeman </content>1.02 5 <content styleCode="Josy lics"> (1.015-1.025 )</content> pH of Urine by 4.5-8.0 <content [facility] Test strip styleCode="Alberta Art d">Urine pH Medical </content>6.5 Center <content styleCode="Josy lics"> (4.5-8.0 )</content> Urobilinogen 0.2-1.0 <content [facility] [Units/volume] styleCode="Alberta Robbs in Urine by d">Urine Medical Test strip Urobilinogen Center </content>0.2 MG/DL<content styleCode="Josy lics"> (0.2-1.0 MG/DL)</conten t> Protein NEGATIVE <content [facility] [Mass/volume] styleCode="Alberta Robbs in Urine by d">Urine Medical Test strip Protein Center </content>NEGA TIVE MG/DL<content styleCode="Josy lics"> (NEGATIVE MG/DL)</conten t> Leukocyte NEGATIVE <content [facility] esterase styleCode="Alberta Robbs [Presence] in d">Urine Medical Urine by Test Leukocyte Center strip </content>NEGA TIVE <content styleCode="Josy lics"> (NEGATIVE )</content> Nitrite NEGATIVE <content [facility] [Presence] in styleCode="Alberta Robbs Urine by Test d">Urine Medical strip Nitrite Center </content>NEGA TIVE <content styleCode="Josy lics"> (NEGATIVE )</content> ID Date Data Source [id number] 07/27/2020 11:30:00 AM EDT [facility] -0400 Name Value Range Interpretation Description Data Sup porting Code Source(s) Document(s ) Cannabinoids <content [facility] [Presence] in styleCode="Alberta Robbs Urine by Screen d">Cannabinoid Medical method >50 ng/mL s Center </content>NEGA TIVE NG/ML (Reference Range: not available)<br/ > ID Date Data Source [id number] 07/27/2020 12:00:00 AM EDT [facility] Name Value Range Interpretation Code Description Data Alyssa rce(s) Supporting Document(s ) 2019-nCoV [facility] RNA XXX GINA+probe- Imp This lab was ordered by [facility] and reported by [employer]. ID Date Data Source [id number] [facility] BY [employer] ULTRA SENSITIVE CENTAUR CHEMILUMINESCENCE METHOD. Name Value Range Interpretation Description Data Sup porting Code Source(s) Document(s ) Troponin < 0.01 [place] I.cardiac ng/mL Hospital [Mass/volume ] in Serum or Plasma ID Date Data Source [id number] 06/12/2020 01:52:00 PM EDT [facility] Name Value Range Interpretation Description Data Sup porting Code Source(s) Document(s ) Aspartate 31 U/L [facility] aminotransferase [place] [Enzymatic Hospital activity/volume] in Serum or Plasma ID Date Data Source [id number] 06/12/2020 01:52:00 PM EDT [facility] Name Value Range Interpretation Description Data Sup porting Code Source(s) Document(s ) Alanine 56 U/L [facility] aminotransferase [place] [Enzymatic Hospital activity/volume] in Serum or Plasma ID Date Data Source [id number] 06/12/2020 01:52:00 PM EDT [facility] Name Value Range Interpretation Description Data Sup porting Code Source(s) Document(s ) Alkaline 57 U/L [place] phosphatase Hospital [Enzymatic activity/volume ] in Serum or Plasma ID Date Data Source [id number] 06/12/2020 01:52[facility] Name Value Range Interpretation Description Data Sup porting Code Source(s) Document(s ) Bilirubin.t 0.3 mg/dL [facility] [Mass/volum e] in Serum or Plasma ID Date Data Source [id number] 06/12/2020 01:52:00 PM EDT [facility] Name Value Range Interpretation Code Description Data Alyssa rce(s) Supporting Document(s ) Albumin/Glob 2.6 [place] ulin [Mass Hospital Ratio] in Serum or Plasma ID Date Data Source [id number] 06/12/2020 01:52:00 PM EDT [facility] Name Value Range Interpretation Description Data Sup porting Code Source(s) Document(s ) Albumin 4.6 g/dL [place] [Mass/volume Hospital ] in Serum or Plasma ID Date Data Source [id number] 06/12/2020 01:52:00 PM EDT [facility] Name Value Range Interpretation Description Data Sup porting Code Source(s) Document(s ) Protein 6.4 g/dL [place] [Mass/volume Hospital ] in Serum or Plasma ID Date Data Source [id number] 06/12/2020 01:52:00 PM EDT [facility] Name Value Range Interpretation Description Data Sup porting Code Source(s) Document(s ) Calcium 9.2 mg/dL [place] [Mass/volume Hospital ] in Serum or Plasma ID Date Data Source [id number] 06/12/2020 01:52:00 PM EDT [facility] Name Value Range Interpretation Code Description Data Alyssa rce(s) Supporting Document(s ) Urea 23.8 [place] nitrogen/Cre Hospital atinine [Mass Ratio] in Serum or Plasma ID Date Data Source [id number] 06/12/2020 01:52:00 PM EDT [facility] Name Value Range Interpretation Description Data Sup porting Code Source(s) Document(s ) Creatinine 0.8 mg/dL [place] [Mass/volume] Hospital in Serum or Plasma ID Date Data Source [id number] 06/12/2020 01:52:00 PM EDT [facility] Name Value Range Interpretation Description Data Sup porting Code Source(s) Document(s ) Urea 19 mg/dL [place] nitrogen Hospital [Mass/volume ] in Serum or Plasma ID Date Data Source [id number] 06/12/2020 01:52:00 PM EDT [facility] Name Value Range Interpretation Code Description Data Alyssa rce(s) Supporting Document(s ) Anion gap in 10 [place] Serum or [facility] Plasma ID Date Data Source [id number] 06/12/2020 01:52:00 PM EDT [facility] Value Range Interpretation Description Data Sup porting Code Source(s) Document(s ) Carbon 31 mmol/L [place] dioxide, Hospital total [Moles/volu me] in Serum or Plasma ID Date Data Source [id number] 06/12/2020 01:52:00 PM EDT [facility] Name Value Range Interpretation Description Data Sup porting Code Source(s) Document(s ) Chloride 104 [place] [Moles/volum mmol/L Hospital e] in Serum or Plasma ID Date Data Source [id number] 06/12/2020 01:52:00 PM EDT [facility] Name Value Range Interpretation Description Data Sup porting Code Source(s) Document(s ) Potassium 4.2 [place] [Moles/volume mmol/L Hospital ] in Serum or Plasma ID Date Data Source [id number] 06/12/2020 01:52:00 PM EDT [facility] Name Value Range Interpretation Description Data Sup porting Code Source(s) Document(s ) Sodium 141 mmol/L [place] [Moles/volu Hospital me] in Serum or Plasma ID Date Data Source [id number] 06/12/2020 01:52:00 PM EDT [facility] Name Value Range Interpretation Description Data Sup porting Code Source(s) Document(s ) Glucose 95 mg/dL [place] [Mass/volume Hospital ] in Serum or Plasma ID Date Data Source [id number] 06/12/2020 01:52:00 PM EDT [facility] Name Value Range Interpretation Description Data Sup porting Code Source(s) Document(s ) Differential AUTOMATED [place] cell count Hospital method - Blood ID Date Data Source [id number] 06/12[facility] Range Interpretation Description Data Sup porting Code Source(s) Document(s ) Immature 0.01 [place] granulocytes 10*3/uL Hospital [#/volume] in Blood by Automated count ID Date Data Source [id number] 06/12/2020 01:52:00 PM EDT [facility] Name Value Range Interpretation Description Data Sup porting Code Source(s) Document(s ) Basophils 0.03 [place] [#/volume] in 10*3/uL Hospital Blood by Automated count ID Date Data Source [id number] 06/12/2020 01:52[facility] Name Value Range Interpretation Description Data Sup porting Code Source(s) Document(s ) Eosinophils 0.07 [place] [#/volume] in 10*3/uL Hospital Blood by Automated count ID Date Data Source [id number] 06/12/2020 01:52:00 PM EDT [facility] Name Value Range Interpretation Description Data Sup porting Code Source(s) Document(s ) Monocytes 0.56 [place] [#/volume] in 10*3/uL Hospital Blood by Automated count ID Date Data Source [id number] 06/12/2020 01:52:00 PM EDT [facility] Name Value Range Interpretation Description Data Sup porting Code Source(s) Document(s ) Lymphocytes 1.88 [place] [#/volume] in 10*3/uL Hospital Blood by Automated count ID Date Data Source [id number] 06/12/2020 01:52:00 PM EDT [facility] Value Range Interpretation Description Data Sup porting Code Source(s) Document(s ) Neutrophils 2.69 [place] [#/volume] in 10*3/uL Hospital Blood by Automated count ID Date Data Source [id number] 06/12/2020 01:52:00 PM EDT [facility] Value Range Interpretation Description Data Sup porting Code Source(s) Document(s ) Nucleated 0.0 % [place] erythrocytes/10 Hospital 0 leukocytes [Ratio] in Blood by Automated count ID Date Data Source [id number] 06/12/2020 01:52:00 PM EDT [facility] Value Range Interpretation Description Data Sup porting Code Source(s) Document(s ) Immature 0.2 % [place] granulocytes/10 Hospital 0 leukocytes in Blood by Automated count ID Date Data Source [id number] 06/12/2020 01:52:00 PM EDT [facility] Value Range Interpretation Description Data Sup porting Code Source(s) Document(s ) Basophils/100 0.6 % [place] leukocytes in Hospital Blood by Automated count ID Date Data Source [id number] 06/12/2020 01:52:00 PM EDT [facility] Value Range Interpretation Description Data Sup porting Code Source(s) Document(s ) Eosinophils/100 1.3 % [place] leukocytes in Hospital Blood by Automated count ID Date Data Source [id number] 06/12/2020 01:52:00 PM EDT [facility] Value Range Interpretation Description Data Sup porting Code Source(s) Document(s ) Monocytes/100 10.7 % [place] leukocytes in Hospital Blood by Automated count ID Date Data Source [id number] 06/12/2020 01:52:00 PM EDT [facility] Value Range Interpretation Description Data Sup porting Code Source(s) Document(s ) Lymphocytes/10 35.9 % [place] 0 leukocytes Hospital in Blood by Automated count ID Date Data Source [id number] 06/12/2020 01:52:00 PM EDT [facility] Value Range Interpretation Description Data Sup porting Code Source(s) Document(s ) Neutrophils/10 51.3 % [place] 0 leukocytes Hospital in Blood by Automated count ID Date Data Source [id number] 06/12/2020 01:52:00 PM EDT [facility] Value Range Interpretation Description Data Sup porting Code Source(s) Document(s ) Platelet mean 12.5 fL [place] volume Hospital [Entitic volume] in Blood by Automated count ID Date Data Source [id number] 06/12/2020 01:52:00 PM EDT [facility] Value Range Interpretation Description Data Sup porting Code Source(s) Document(s ) Platelets 132 [place] [#/volume] in 10*3/uL Hospital Blood by Automated count ID Date Data Source [id number] 06/12/2020 01:52:00 PM EDT [facility] Value Range Interpretation Description Data Sup porting Code Source(s) Document(s ) Erythrocyte 11.8 % [place] distribution Hospital width [Ratio] by Automated count ID Date Data Source [id number] 06/12/2020 01:52:00 PM EDT [facility] Value Range Interpretation Description Data Sup porting Code Source(s) Document(s ) Erythrocyte mean 33.3 [place] corpuscular g/dL Hospital hemoglobin concentration [Mass/volume] by Automated count ID Date Data Source [id number] 06/12/2020 01:52:00 PM EDT [facility] Value Range Interpretation Description Data Sup porting Code Source(s) Document(s ) Erythrocyte 29.2 pg [facility] corpuscular hemoglobin [Entitic mass] by Automated count ID Date Data Source [id number] 06/12/2020 01:52:00 PM EDT [facility] Value Range Interpretation Description Data Sup porting Code Source(s) Document(s ) Erythrocyte 87.8 fL [place] mean Hospital corpuscular volume [Entitic volume] by Automated count ID Date Data Source [id number] 06/12/2020 01:52:00 PM EDT [facility] Value Range Interpretation Description Data Sup porting Code Source(s) Document(s ) Hematocrit 41.8 % [place] [Volume Hospital Fraction] of Blood by Automated count ID Date Data Source [id number] 06/12/2020 01:52:00 PM EDT [facility] Value Range Interpretation Description Data Sup porting Code Source(s) Document(s ) Hemoglobin 13.9 g/dL [place] [Mass/volume] Hospital in Blood ID Date Data Source [id number] 06/12/2020 01:52:00 PM EDT [facility] Value Range Interpretation Description Data Sup porting Code Source(s) Document(s ) Erythrocytes 4.76 [place] [#/volume] in 10*6/uL Hospital Blood by Automated count ID Date Data Source [id number] 06/12/2020 01:52:00 PM EDT [facility] Value Range Interpretation Description Data Sup porting Code Source(s) Document(s ) Leukocytes 5.2 [place] [#/volume] in 10*3/uL Hospital Blood by Automated count ID Date Data Source [id number] 05/13/2020 06:17:00 AM EDT [facility] 0 Name Value Range Interpretation Description Data Sup porting Code Source(s) Document(s ) Glucose NEGATIVE <content [facility] [Mass/volume] styleCode="[facility] in Urine by d">Urine Medical Test strip Glucose Center </content>NEGA TIVE MG/DL<content styleCode="Josy lics"> (NEGATIVE MG/DL)</conten t> Color of Urine YELLOW <content [facility] styleCode="[facility] d">Color, Medical Urine Center </content>AMBE R <content styleCode="Josy lics"> (YELLOW )</content> UNK CLEAR <content [facility] styleCode="[facility] d">Urine Medical Clarity Center </content>Sl CLOUDY <content styleCode="Josy lics"> (CLEAR )</content> Hemoglobin NEGATIVE <content [facility] [Presence] in styleCode="[facility] Cordova Urine by Test d">Urine Blood Medical strip </content>NEGA Center TIVE <content styleCode="Josy lics"> (NEGATIVE )</content> Ketones NEGATIVE <content [facility] [Mass/volume] styleCode="Alberta Robbs in Urine by d">Urine Medical Test strip Ketone Center </content>NEGA TIVE MG/DL<content styleCode="Josy lics"> (NEGATIVE MG/DL)</conten t> UNK NEGATIVE <content [facility] styleCode="[facility]berta Robbs d">Urine Medical Bilirubin Center </content>NEGA TIVE <content styleCode="Josy lics"> (NEGATIVE )</content> Specific 1.015-1.02 <content [facility] gravity of 5 styleCode="[facility] Cordova Urine by Test d">Urine Medical strip Specific Center [place] </content>1.02 5 <content styleCode="Josy lics"> (1.015-1.025 )</content> Urobilinogen 0.2-1.0 <content [facility] [Units/volume] styleCode="Alberta Robbs in Urine by d">Urine Medical Test strip Urobilinogen Center </content>1.0 MG/DL<content styleCode="Josy lics"> (0.2-1.0 MG/DL)</conten t> Nitrite NEGATIVE <content [facility] [Presence] in styleCode="Alberta Robbs Urine by Test d">Urine Medical strip Nitrite Center </content>NEGA TIVE <content styleCode="Josy lics"> (NEGATIVE )</content> Protein NEGATIVE <content [facility] [Mass/volume] styleCode="Alberta Robbs in Urine by d">Urine Medical Test strip Protein Center </content>NEGA TIVE MG/DL<content styleCode="Josy lics"> (NEGATIVE MG/DL)</conten t> pH of Urine by 4.5-8.0 <content Saint Test strip styleCode="Alberta Art d">Urine pH Medical </content>6.0 Center <content styleCode="Joys lics"> (4.5-8.0 )</content> UNK 0-3 <content Saint styleCode="[facility]berta Art d">Urine Red Medical Blood Cell Center </content>0-3 HPF<content styleCode="Josy lics"> (0-3 HPF)</content> UNK NONE <content [facility] styleCode="Alberta Art d">Calcium Medical Oxalate Center Crystal </content>FEW HPF<content styleCode="Josy lics"> (NONE HPF)</content> UNK 0-3 <content Saint styleCode="Alberta Art d">Urine White Medical Blood Cell Center </content>5 - 10 HPF<content styleCode="Josy lics"> (0-3 HPF)</content> Leukocyte NEGATIVE <content [facility] esterase styleCode="[facility]berta Robbs [Presence] in d">Urine Medical Urine by Test Leukocyte Center strip </content>NEGA TIVE <content styleCode="Josy lics"> (NEGATIVE )</content> UNK NONE SEEN <content Saint styleCode="Alberta Art d">Epithelial Medical Cell Center </content>NONE SEEN HPF<content styleCode="Josy lics"> (NONE SEEN HPF)</content> UNK NONE SEEN <content Saint styleCode="[facility]berta Art d">Urine Mucus Medical </content>MODE Center RATE HPF<content styleCode="Josy lics"> (NONE SEEN HPF)</content> ID Date Data Source [id number] 05/13/2020 06:17:00 AM EDT [facility] 400 Name Value Range Interpretation Code Description Data Alyssa rce(s) Supporting Document(s ) UNK <item><content [facility] styleCode="Bold"> Medical [facility] Culture Report </content>
<t able><tbody><tr>< td>Specimen Number:</td><td>[id number]</td></tr ><tr><td>Sample Collection Date/Time: </td><td> 0 6:17 AM</td></tr><tr>< td>Specimen Source:</td><td>U RINE</td></tr><tr ><td>Urine Culture:</td><td> Collection Plate Date: 05/13/2020 06:22 </td></tr><tr><td >Culture Status:</td><td>P reliminary </td></tr><tr><td >Culture Report:</td><td>C ulture in progress </td></tr></tbody ></table></item> UNK <item><content [facility] styleCode="Bold"> Medical [facility] Culture Status </content>
<t able><tbody><tr>< td>Specimen Number:</td><td>[id number]</td></tr ><tr><td>Sample Collection Date/Time: </td><td> 0 6:17 AM</td></tr><tr>< td>Specimen Source:</td><td>U RINE</td></tr><tr ><td>Culture Status:</td><td>P reliminary </td></tr><tr><td >Culture Report:</td><td>C ulture in progress </td></tr><tr><td >Urine Culture:</td><td> Collection Plate Date: 05/13/2020 06:22 </td></tr></tbody ></table></item> ID Date Data Source [id number] 05/13/2020 06:17:00 AM EDT [facility] -0400 Name Value Range Interpretation Description Data Sup porting Code Source(s) Document(s ) Cannabinoids <content [facility] [Presence] in styleCode="[facility] Urine by Screen d">Cannabinoid Medical method >50 ng/mL s [place] </content>NEGA TIVE NG/ML (Reference Range: not available)<br/ > ID Date Data Source [id number] 05/13/2020 05:59:00 AM EDT [facility] Name Value Range Interpretation Description Data Sup porting Code Source(s) Document(s ) Triglyceride < 150 <content [facility] [Mass/volume] in styleCode="[facility] Serum or Plasma d">Triglycerid [facility] </content>62 MG/DL<content styleCode="Josy lics"> (< 150 MG/DL)</conten t> UNK < 100 <content Saint styleCode="Alberta Art d">LDL[facility]Cholest [facility] </content>86 MG/DL<content styleCode="Josy lics"> (< 100 MG/DL)</conten t> Cholesterol -<200 <content [facility] [Mass/volume] in styleCode="Alberta Art Serum or Plasma d">Cholesterol Medical </content>150 Center MG/DL<content styleCode="Josy lics"> (-<200 MG/DL)</conten t> UNK > 60 Below low normal <content Saint styleCode="[facility]berta Art d">HDL- Medical Cholesterol Center </content>52 MG/DL L<content styleCode="Josy lics"> (> 60 MG/DL)</conten t> ID Date Data Source [id number] 05/13/2020 05:59:00 AM EDT [facility] -0400 Name Value Range Interpretation Code Description Data Alyssa rce(s) Supporting Document(s ) UNK 4.2-5.8 <content [facility] styleCode="Bold" Medical Cente r >Hemoglobin A1C </content>5.6 %<content styleCode="Itali cs"> (4.2-5.8 %)</content> ID Date Data Source [id number] 05/12/2020 09:34:00 PM EDT [facility] Name Value Range Interpretation Code Description Data Alyssa rce(s) Supporting Document(s ) COV2 [facility] This lab was ordered by [facility] and reported by [facility] [place]. ID Date Data Source Liver 05/12/2020 08:59:[address] [facility] [id number] Name Value Range Interpretation Description Data Sup porting Code Source(s) Document(s ) Alanine 7-50 <content [facility] aminotransferase styleCode="Bold"> Sg hs [Enzymatic Alanine Medical activity/volume] Aminotransferase Center in Serum or Plasma (ALT) </content>13 IU/L<content styleCode="Italic s"> (7-50 IU/L)</content> Bilirubin.total 0.2-1.3 <content [facility] [Mass/volume] in styleCode="Bold"> Sg hs Serum or Plasma Bilirubin Total Medical </content>0.6 Center MG/DL<content styleCode="Italic s"> (0.2-1.3 MG/DL)</content> Alkaline 38-126 <content [facility] phosphatase styleCode="Bold"> Art [Enzymatic Alkaline Medical activity/volume] Phosphatase (ALP) Cente r in Serum or Plasma </content>57 IU/L<content styleCode="Italic s"> (38-126 IU/L)</content> Aspartate 17-59 <content [facility] aminotransferase styleCode="Bold"> Sg hs [Enzymatic Aspartate Medical activity/volume] Aminotransferase Center in Serum or Plasma (AST) </content>20 IU/L<content styleCode="Italic s"> (17-59 IU/L)</content> Albumin 3.5-5.0 <content [facility] [Mass/volume] in styleCode="Bold"> Sg hs Serum or Plasma Albumin Medical </content>4.8 Center G/DL<content styleCode="Italic s"> (3.5-5.0 G/DL)</content> UNK 0.0-0.3 <content Saint styleCode="Bold"> [facility] Bilirubin, Direct Medical </content>< 0.2 Center MG/DL<content styleCode="Italic s"> (0.0-0.3 MG/DL)</content> ID Date Data Source [id number] 05/12/2020 08:59:00 PM EDT [facility] 0400 Name Value Range Interpretation Description Data Sup porting Code Source(s) Document(s ) Leukocytes 4.4-11.0 <content [facility] [#/volume] in styleCode="Bold Art Blood by ">White Blood Medical Automated count Cell Count Center </content>7.83 KCUMM<content styleCode="Ital ics"> (4.4-11.0 KCUMM)</content > Hemoglobin 13.5-17. <content [facility] [Mass/volume] in 5 styleCode="Bold Art Blood ">Hemoglobin Medical </content>14.4 Center G/DL<content styleCode="Ital ics"> (13.5-17.5 G/DL)</content> Erythrocyte mean 80.0-100 <content [facility] corpuscular .0 styleCode="Bold Art volume [Entitic ">Mean Medical volume] by Corpuscular Center Automated count Volume </content>87.3 FL<content styleCode="Ital ics"> (80.0-100.0 FL)</content> Hematocrit 41.0-53. <content [facility] [Volume 0 styleCode="Bold Art Fraction] of ">Hematocrit Medical Blood by </content>43.5 Center Automated count %<content styleCode="Ital ics"> (41.0-53.0 %)</content> Erythrocytes 4.4-5.9 <content [facility] [#/volume] in styleCode="Bold Art Blood by ">Red Blood Medical Automated count Cell Count Center </content>4.98 MCUMM<content styleCode="Ital ics"> (4.4-5.9 MCUMM)</content > Platelet mean 8.0-11.0 Above high <content Saint volume [Entitic normal styleCode="Bold Art volume] in Blood ">Mean Platelet Medical by Automated Volume Center count </content>11.9 FL H<content styleCode="Ital ics"> (8.0-11.0 FL)</content> Platelets 130-400 <content Saint [#/volume] in styleCode="Bold Art Blood by ">Platelet Medical Automated count Count Center </content>178 KCUMM<content styleCode="Ital ics"> (130-400 KCUMM)</content > Erythrocyte 11.5-14. <content [facility] distribution 5 styleCode="Bold Art width [Ratio] by ">Red Cell Medical Automated count Distribution Center Width </content>12.4 %<content styleCode="Ital ics"> (11.5-14.5 %)</content> Erythrocyte mean 26.0-34. <content [facility] corpuscular 0 styleCode="Bold Art hemoglobin ">Mean Medical [Entitic mass] Corposcular Center by Automated Hemoglobin count </content>28.9 PG<content styleCode="Ital ics"> (26.0-34.0 PG)</content> Erythrocyte mean 32.0-37. <content [facility] corpuscular 0 styleCode="Bold Art hemoglobin ">Mean Corpus. Medical concentration Hgb Center [Mass/volume] by Concentration Automated count (MCHC) </content>33.1 G/DL<content styleCode="Ital ics"> (32.0-37.0 G/DL)</content> UNK 0.0 <content Saint styleCode="Bold Art ">Nucleated Red Medical Blood Cell Center Count </content>0.00 KCUMM<content styleCode="Ital ics"> (0.0 KCUMM)</content > UNK 0 <content Saint styleCode="Bold Art ">Nucleated Red Medical Blood Cell Center </content>0.0 /100<content styleCode="Ital ics"> (0 /100)</content> ID Date Data Source GFR(Creatinine).[id number] 05/12/2020 08:59:00 PM EDT [facility] 0-0400 Name Value Range Interpretation Code Description Data Alyssa rce(s) Supporting Document(s ) UNK > 60 <content [facility] styleCode="Bold"> Medical Cent er EGFR </content>111 GFR<content styleCode="Italic s"> (> 60 GFR)</content> ID Date Data Source [id number] 05/12/2020 08:59:00 PM EDT [facility] [facility] Name Value Range Interpretation Description Data Sup porting Code Source(s) Document(s ) Potassium 3.5-5.3 <content [facility] [Moles/volume] in styleCode="Bold"> [facility] Serum or Plasma Potassium Medical </content>3.8 Center MEQ/L<content styleCode="Italic s"> (3.5-5.3 MEQ/L)</content> Sodium 137-145 <content [facility] [Moles/volume] in styleCode="Bold"> [facility] Serum or Plasma Sodium Medical </content>138 Center MEQ/L<content styleCode="Italic s"> (137-145 MEQ/L)</content> UNK 9-20 <content Saint styleCode="Bold"> Art BUN </content>15 Medical MG/DL<content Center styleCode="Italic s"> (9-20 MG/DL)</content> Carbon dioxide, 22-30 <content [facility] total styleCode="Bold"> Art [Moles/volume] in Carbon Dioxide Medical Serum or Plasma </content>25 Center MEQ/L<content styleCode="Italic s"> (22-30 MEQ/L)</content> Glucose 74-106 Above high <content Saint [Mass/volume] in normal styleCode="Bold"> Sg hs Serum or Plasma Glucose Medical </content>159 Center MG/DL H<content styleCode="Italic s"> (74-106 MG/DL)</content> Chloride 98-107 <content [facility] [Moles/volume] in styleCode="Bold"> [facility] Serum or Plasma Chloride Medical </content>102 Center MEQ/L<content styleCode="Italic s"> (98-107 MEQ/L)</content> Creatinine 0.5-1.3 <content [facility] [Mass/volume] in styleCode="Bold"> Sg hs Serum or Plasma Creatinine Medical </content>0.9 Center MG/DL<content styleCode="Italic s"> (0.5-1.3 MG/DL)</content> Aspartate 17-59 <content [facility] aminotransferase styleCode="Bold"> Sg hs [Enzymatic Aspartate Medical activity/volume] Aminotransferase Center in Serum or Plasma (AST) </content>20 IU/L<content styleCode="Italic s"> (17-59 IU/L)</content> Calcium 8.4-10. <content [facility] [Mass/volume] in 2 styleCode="Bold"> Sg hs Serum or Plasma Calcium Medical </content>9.9 Center MG/DL<content styleCode="Italic s"> (8.4-10.2 MG/DL)</content> Alanine 7-50 <content [facility] aminotransferase styleCode="Bold"> Sg hs [Enzymatic Alanine Medical activity/volume] Aminotransferase Center in Serum or Plasma (ALT) </content>13 IU/L<content styleCode="Italic s"> (7-50 IU/L)</content> UNK > 60 <content Saint styleCode="Bold"> Art EGFR Medical </content>111 Center GFR<content styleCode="Italic s"> (> 60 GFR)</content> Albumin 3.5-5.0 <content [facility] [Mass/volume] in styleCode="Bold"> Sg hs Serum or Plasma Albumin Medical </content>4.8 Center G/DL<content styleCode="Italic s"> (3.5-5.0 G/DL)</content> Alkaline 38-126 <content [facility] phosphatase styleCode="Bold"> Art [Enzymatic Alkaline Medical activity/volume] Phosphatase (ALP) Cente r in Serum or Plasma </content>57 IU/L<content styleCode="Italic s"> (38-126 IU/L)</content> Bilirubin.total 0.2-1.3 <content [facility] [Mass/volume] in styleCode="Bold"> Sg hs Serum or Plasma Bilirubin Total Medical </content>0.6 Center MG/DL<content styleCode="Italic s"> (0.2-1.3 MG/DL)</content> Procedure Social History Code Duration Value Status Description Data Source(s ) Smoking 07/27/2020 Denies Ever completed Denies Ever Smoked [facility] 10:53:00 AM EDT Smoked Medical C enter Smoking 07/27/2020 Denies Ever completed Denies Ever Smoked [facility] 10:47:00 AM EDT Smoked Medical C enter Smoking 05/13/2020 Denies Ever completed Denies Ever Smoked [facility] 11:09:00 AM EDT Smoked Medical C enter Smoking 05/12/2020 Denies Ever completed Denies Ever Smoked [facility] 11:35:00 PM EDT Smoked Medical C enter Smoking 05/12/2020 Denies Ever completed Denies Ever Smoked [facility] 08:33:00 PM EDT Smoked Medical C enter Smoking 05/12/2020 Denies Ever completed Denies Ever Smoked [facility] 08:28:00 PM EDT Smoked Medical C enter Smoking Unknown if ever completed Unknown if ever [facility] e [facility] smoked smoked Hospital Vital Signs ID Date Data Source UNK Name Value Range Interpretation Code Description Data Source(s) Diastolic blood 78 mmHg 78 mmHg [facility] Systolic blood 105 mmHg 105 mmHg [facility] Respiratory rate 18 bpm 18 bpm [facility] Heart rate 87 bpm 87 bpm [facility] Body temperature 98.2 Fahrenheit 98.2 Fahrenhei t [facility] Diastolic blood 74 mmHg 74 mmHg [facility] Systolic blood 109 mmHg 109 mmHg [facility] Heart rate 75 bpm 75 bpm [facility] Diastolic blood 58 mmHg 58 mmHg [facility] Systolic blood 112 mmHg 112 mmHg [facility] Respiratory rate 57 bpm 57 bpm [facility] Heart rate 57 bpm 57 bpm [facility] Body temperature 98.2 Fahrenheit 98.2 Fahrenhei t [facility] Respiratory rate 18 bpm 18 bpm [facility] Body temperature 97.1 Fahrenheit 97.1 Fahrenhei t [facility] Diastolic blood 75 mmHg 75 mmHg [facility] Systolic blood 113 mmHg 113 mmHg [facility] Heart rate 66 bpm 66 bpm [facility] Body weight 153 lbs 153 lbs [facility] Diastolic blood 73 mmHg 73 mmHg [facility] Systolic blood 109 mmHg 109 mmHg [facility] Respiratory rate 18 bpm 18 bpm [facility] Heart rate 62 bpm 62 bpm [facility] Body temperature 97.0 Fahrenheit 97.0 Fahrenhei t [facility] Body weight 153 lbs 153 lbs [facility] Diastolic blood 73 mmHg 73 mmHg [facility] Systolic blood 118 mmHg 118 mmHg [facility] Respiratory rate 18 bpm 18 bpm [facility] Heart rate 64 bpm 64 bpm [facility] Body temperature 97.0 Fahrenheit 97.0 Fahrenhei t [facility] Diastolic blood 76 mmHg 76 mmHg [facility] Systolic blood 127 mmHg 127 mmHg [facility] Heart rate 61 bpm 61 bpm [facility] Diastolic blood 73 mmHg 73 mmHg [facility] Systolic blood 115 mmHg 115 mmHg [facility] Heart rate 83 bpm 83 bpm [facility] Diastolic blood 73 mmHg 73 mmHg [facility] Systolic blood 116 mmHg 116 mmHg [facility] Heart rate 85 bpm 85 bpm [facility] Diastolic blood 71 mmHg 71 mmHg [facility] Systolic blood 116 mmHg 116 mmHg [facility] Heart rate 97 bpm 97 bpm [facility] Diastolic blood 75 mmHg 75 mmHg [facility] Systolic blood 126 mmHg 126 mmHg [facility] Respiratory rate 18 bpm 18 bpm [facility] Heart rate 76 bpm 76 bpm [facility] Body temperature 98.4 Fahrenheit 98.4 Fahrenhei t [facility] Body temperature 37.897258 Teresa 37.937161 Teresa [facility] Respiratory rate 18 /min 18 /min [facility] Oxygen 98 % 98 % [facility] saturation in Medical Arterial blood Center by Pulse oximetry Heart rate 86 /min 86 /min [facility] Diastolic blood 60 mm[Hg] 60 mm[Hg] [facility] Systolic blood 109 mm[Hg] 109 mm[Hg] [facility] Body temperature 37.358534 Teresa 37.157732 Teresa [facility] Respiratory rate 19 /min 19 /min [facility] Oxygen 98 % 98 % [facility] saturation in Medical Arterial blood Center by Pulse oximetry Heart rate 96 /min 96 /min [facility] Diastolic blood 75 mm[Hg] 75 mm[Hg] [facility] pressure Medical Center Systolic blood 124 mm[Hg] 124 mm[Hg] [facility] Body temperature 37.214957 Teresa 37.664599 Teresa [facility] Respiratory rate 19 /min 19 /min [facility] Oxygen 99 % 99 % [place] saturation in Medical Arterial blood Center by Pulse oximetry Heart rate 94 /min 94 /min [facility] Diastolic blood 84 mm[Hg] 84 mm[Hg] [facility] Systolic blood 130 mm[Hg] 130 mm[Hg] [facility] Body weight 74.547704 kg 74.112131 kg [facility] Body temperature 36.809274 Teresa 36.542751 Teresa [facility] Respiratory rate 18 /min 18 /min [facility] Oxygen 100 % 100 % [facility] saturation in Medical Arterial blood Center by Pulse oximetry Heart rate 79 /min 79 /min [facility] Body height 172.129520 cm 172.730104 cm [facility] Diastolic blood 68 mm[Hg] 68 mm[Hg] [facility] Systolic blood 117 mm[Hg] 117 mm[Hg] [facility] Body mass index 24.8 kg/m2 24.8 kg/m2 [facility] (BMI) [Ratio] [facility] Center Diastolic blood 72 mmHg 72 mmHg [facility] Systolic blood 113 mmHg 113 mmHg [facility] Respiratory rate 18 bpm 18 bpm [facility] Heart rate 104 bpm 104 bpm [facility] Systolic blood 112 mmHg 112 mmHg [facility] Respiratory rate 18 bpm 18 bpm [facility] Heart rate 82 bpm 82 bpm [facility] Body temperature 98.2 Fahrenheit 98.2 Fahrenhei t [facility] Diastolic blood 83 mmHg 83 mmHg [facility] Diastolic blood 70 mmHg 70 mmHg [facility] Systolic blood 104 mmHg 104 mmHg [facility] Respiratory rate 18 bpm 18 bpm [facility] Heart rate 99 bpm 99 bpm [facility] Body temperature 98.1 Fahrenheit 98.1 Fahrenhei t [facility] Diastolic blood 74 mmHg 74 mmHg [facility] Systolic blood 110 mmHg 110 mmHg [facility] Respiratory rate 18 bpm 18 bpm [facility] Heart rate 88 bpm 88 bpm [facility] Body temperature 98.1 Fahrenheit 98.1 Fahrenhei t [facility] Diastolic blood 72 mmHg 72 mmHg [facility] Systolic blood 111 mmHg 111 mmHg [facility] Heart rate 79 bpm 79 bpm [facility] Diastolic blood 69 mmHg 69 mmHg [facility] Systolic blood 107 mmHg 107 mmHg [facility] Respiratory rate 18 bpm 18 bpm [facility] Heart rate 82 bpm 82 bpm [facility] Body temperature 97.4 Fahrenheit 97.4 Fahrenhei t [facility] Diastolic blood 73 mmHg 73 mmHg [facility] Systolic blood 123 mmHg 123 mmHg [facility] Heart rate 87 bpm 87 bpm [facility] Body weight 144 lbs 144 lbs [facility] Diastolic blood 71 mmHg 71 mmHg [facility] Systolic blood 118 mmHg 118 mmHg [facility] Respiratory rate 16 bpm 16 bpm [facility] Heart rate 83 bpm 83 bpm [facility] Body temperature 98.4 Fahrenheit 98.4 Fahrenhei t [facility] Diastolic blood 72 mmHg 72 mmHg [facility] Systolic blood 106 mmHg 106 mmHg [facility] Heart rate 66 bpm 66 bpm [facility] Diastolic blood 64 mmHg 64 mmHg [facility] Systolic blood 109 mmHg 109 mmHg [facility] Respiratory rate 18 bpm 18 bpm [facility] Heart rate 56 bpm 56 bpm [facility] Body temperature 97.4 Fahrenheit 97.4 Fahrenhei t [facility] Diastolic blood 59 mm[Hg] 59 mm[Hg] [facility] Systolic blood 125 mm[Hg] 125 mm[Hg] [facility] Respiratory rate 18 /min 18 /min [facility] Heart rate 80 /min 80 /min [facility] Body temperature 36.13652 Teresa 36.68577 Teresa [facility] Body temperature 97.9 [degF] 97.9 [degF] [facility] Body mass index 20.0 kg/m2 20.0 kg/m2 [facility] ins (BMI) [Ratio] Hospital Body weight 139.29 [lb_av] 139.29 [lb_av] [facility] Body temperature 98.6 Fahrenheit 98.6 Fahrenhei t [facility] Diastolic blood 71 mmHg 71 mmHg [facility] Systolic blood 105 mmHg 105 mmHg [facility] Respiratory rate 18 bpm 18 bpm [facility] Heart rate 86 bpm 86 bpm [facility] Body temperature 98.9 Fahrenheit 98.9 hrenh t [facility] Diastolic blood 65 mmHg 65 mmHg [facility] Systolic blood 102 mmHg 102 mmHg [facility] Respiratory rate 18 bpm 18 bpm [facility] Heart rate 90 bpm 90 bpm [facility] Diastolic blood 72 mmHg 72 mmHg [facility] Systolic blood 111 mmHg 111 mmHg [facility] Heart rate 79 bpm 79 bpm [facility] Diastolic blood 70 mmHg 70 mmHg [facility] Systolic blood 112 mmHg 112 mmHg [facility] Respiratory rate 18 bpm 18 bpm [facility] Heart rate 72 bpm 72 bpm [facility] Body temperature 97.1 Fahrenheit 97.1 hrenh t [facility] Body weight 133 lbs 133 lbs [facility] Diastolic blood 66 mmHg 66 mmHg [facility] Systolic blood 105 mmHg 105 mmHg [facility] Respiratory rate 18 bpm 18 bpm [facility] Heart rate 71 bpm 71 bpm [facility] Body temperature 97.8 Fahrenheit 97.8 Fahrenh t [facility] Body temperature 36.163861 Teresa 36.476916 Teresa [facility] Respiratory rate 18 /min 18 /min [facility] Oxygen 99 % 99 % [facility] saturation in Medical Arterial blood Center by Pulse oximetry Heart rate 18 /min 18 /min [facility] Diastolic blood 78 mm[Hg] 78 mm[Hg] [facility] Systolic blood 128 mm[Hg] 128 mm[Hg] [facility] Body temperature 36.460444 Teresa 36.035039 Teresa [facility] Respiratory rate 18 /min 18 /min [facility] Oxygen 98 % 98 % [facility] saturation in Medical Arterial blood Center by Pulse oximetry Heart rate 92 /min 92 /min [facility] Diastolic blood 81 mm[Hg] 81 mm[Hg] [facility] pressure Medical Center Systolic blood 135 mm[Hg] 135 mm[Hg] [facility] Body temperature 36.056299 Teresa 36.140325 Teresa [facility] Respiratory rate 18 /min 18 /min [facility] Oxygen 100 % 100 % [place] saturation in Medical Arterial blood Center by Pulse oximetry Heart rate 76 /min 76 /min [facility] Diastolic blood 71 mm[Hg] 71 mm[Hg] [facility] pressure Medical Center Systolic blood 144 mm[Hg] 144 mm[Hg] [facility] Body temperature 36.846451 Teresa 36.085568 Teresa [facility] Respiratory rate 18 /min 18 /min [facility] Oxygen 97 % 97 % [facility] saturation in Medical Arterial blood Center by Pulse oximetry Heart rate 81 /min 81 /min [facility] Diastolic blood 78 mm[Hg] 78 mm[Hg] [facility] Systolic blood 132 mm[Hg] 132 mm[Hg] [facility] Body weight 85.503415 kg 85.082768 kg [facility] Body temperature 37.056702 Teresa 37.998054 Teresa [facility] Respiratory rate 18 /min 18 /min [facility] Oxygen 98 % 98 % [place] saturation in Medical Arterial blood Center by Pulse oximetry Heart rate 79 /min 79 /min [facility] Body height 170.225535 cm 170.731578 cm [facility] Diastolic blood 78 mm[Hg] 78 mm[Hg] [facility] pressure Medical Center Systolic blood 135 mm[Hg] 135 mm[Hg] [facility] Body mass index 29.3 kg/m2 29.3 kg/m2 [facility] (BMI) [Ratio] Medical Center Diastolic blood 80 mmHg 80 mmHg [facility] Systolic blood 113 mmHg 113 mmHg [facility] Heart rate 96 bpm 96 bpm [facility] Diastolic blood 79 mmHg 79 mmHg [facility] Systolic blood 118 mmHg 118 mmHg [facility] Respiratory rate 18 bpm 18 bpm [facility] Heart rate 80 bpm 80 bpm [facility] Body temperature 97.1 Fahrenheit 97.1 Fahrenhei t [facility] Diastolic blood 76 mmHg 76 mmHg [facility] Systolic blood 115 mmHg 115 mmHg [facility] Respiratory rate 18 bpm 18 bpm [facility] Heart rate 77 bpm 77 bpm [facility] Body temperature 97.1 Fahrenheit 97.1 Fahrenhei t [facility] Diastolic blood 68 mmHg 68 mmHg [facility] Systolic blood 105 mmHg 105 mmHg [facility] Heart rate 92 bpm 92 bpm [facility] Diastolic blood 73 mmHg 73 mmHg [facility] Systolic blood 115 mmHg 115 mmHg [facility] Respiratory rate 18 bpm 18 bpm [facility] Heart rate 72 bpm 72 bpm [facility] Body temperature 96.9 Fahrenheit 96.9 Fahrenhei t [facility] Diastolic blood 67 mmHg 67 mmHg [facility] Systolic blood 110 mmHg 110 mmHg [facility] Respiratory rate 18 bpm 18 bpm [facility] Heart rate 117 bpm 117 bpm [facility] Body temperature 97.4 Fahrenheit 97.4 Fahrenhei t [facility] Diastolic blood 78 mmHg 78 mmHg [facility] Systolic blood 118 mmHg 118 mmHg [facility] Respiratory rate 18 bpm 18 bpm [facility] Heart rate 88 bpm 88 bpm [facility] Body temperature 97.4 Fahrenheit 97.4 Fahrenhei t [facility] Body temperature 97.2 Fahrenheit 97.2 Fahrenhei t [facility] Diastolic blood 71 mmHg 71 mmHg [facility] Systolic blood 104 mmHg 104 mmHg [facility] Respiratory rate 18 bpm 18 bpm [facility] Heart rate 103 bpm 103 bpm [facility] Diastolic blood 78 mmHg 78 mmHg [facility] Systolic blood 123 mmHg 123 mmHg [facility] Heart rate 98 bpm 98 bpm [facility] Diastolic blood 83 mmHg 83 mmHg [facility] Systolic blood 123 mmHg 123 mmHg [facility] Respiratory rate 18 bpm 18 bpm [facility] Heart rate 89 bpm 89 bpm [facility] Body temperature 97.0 Fahrenheit 97.0 Fahrenhei t [facility] Respiratory rate 17 bpm 17 bpm [facility] Body temperature 96.6 Fahrenheit 96.6 Fahrenhei t [facility] Diastolic blood 70 mmHg 70 mmHg [facility] Systolic blood 114 mmHg 114 mmHg [facility] Heart rate 78 bpm 78 bpm [facility] Diastolic blood 66 mmHg 66 mmHg [facility] Systolic blood 106 mmHg 106 mmHg [facility] Heart rate 88 bpm 88 bpm [facility] Diastolic blood 68 mmHg 68 mmHg [facility] Systolic blood 112 mmHg 112 mmHg [facility] Respiratory rate 18 bpm 18 bpm [facility] Heart rate 70 bpm 70 bpm [facility] Body temperature 96.3 Fahrenheit 96.3 Fahrenhei t [facility] Diastolic blood 69 mmHg 69 mmHg [facility] Systolic blood 105 mmHg 105 mmHg [facility] Respiratory rate 18 bpm 18 bpm [facility] Heart rate 89 bpm 89 bpm [facility] Diastolic blood 76 mmHg 76 mmHg [facility] Systolic blood 112 mmHg 112 mmHg [facility] Respiratory rate 18 bpm 18 bpm [facility] Heart rate 80 bpm 80 bpm [facility] Body temperature 97.3 Fahrenheit 97.3 Fahrenhei t [facility] Diastolic blood 70 mmHg 70 mmHg [facility] Systolic blood 108 mmHg 108 mmHg [facility] Respiratory rate 18 bpm 18 bpm [facility] Heart rate 88 bpm 88 bpm [facility] Body weight 152 lbs 152 lbs [facility] Diastolic blood 72 mmHg 72 mmHg [facility] Systolic blood 108 mmHg 108 mmHg [facility] Respiratory rate 18 bpm 18 bpm [facility] Heart rate 70 bpm 70 bpm [facility] Body temperature 96.8 Fahrenheit 96.8 Fahrenhei t [facility] Diastolic blood 67 mmHg 67 mmHg [facility] Systolic blood 96 mmHg 96 mmHg [facility] Diastolic blood 70 mmHg 70 mmHg [facility] Systolic blood 107 mmHg 107 mmHg [facility] Respiratory rate 18 bpm 18 bpm [facility] Heart rate 81 bpm 81 bpm [facility] Body temperature 97 Fahrenheit 97 Fahrenheit [facility] Diastolic blood 71 mmHg 71 mmHg [facility] Systolic blood 109 mmHg 109 mmHg [facility] Heart rate 95 bpm 95 bpm [facility] Diastolic blood 73 mmHg 73 mmHg [facility] Systolic blood 112 mmHg 112 mmHg [facility] Respiratory rate 18 bpm 18 bpm [facility] Heart rate 85 bpm 85 bpm [facility] Body temperature 97.0 Fahrenheit 97.0 Fahrenhei t [facility] Diastolic blood 76 mmHg 76 mmHg [facility] Systolic blood 114 mmHg 114 mmHg [facility] Heart rate 102 bpm 102 bpm [facility] Diastolic blood 76 mmHg 76 mmHg [facility] Systolic blood 118 mmHg 118 mmHg [facility] Respiratory rate 18 bpm 18 bpm [facility] Heart rate 84 bpm 84 bpm [facility] Body temperature 97.0 Fahrenheit 97.0 Fahrenhei t [facility] Diastolic blood 76 mmHg 76 mmHg [facility] Systolic blood 106 mmHg 106 mmHg [facility] Respiratory rate 18 bpm 18 bpm [facility] Heart rate 107 bpm 107 bpm [facility] Body temperature 96.9 Fahrenheit 96.9 Fahrenhei t [facility] Diastolic blood 76 mmHg 76 mmHg [facility] Systolic blood 110 mmHg 110 mmHg [facility] Respiratory rate 18 bpm 18 bpm [facility] Heart rate 92 bpm 92 bpm [facility] Body temperature 96.9 Fahrenheit 96.9 Fahrenhei t [facility] Body temperature 96.0 Fahrenheit 96.0 Fahrenhei t [facility] Diastolic blood 71 mmHg 71 mmHg [facility] Systolic blood 115 mmHg 115 mmHg [facility] Respiratory rate 18 bpm 18 bpm [facility] Heart rate 73 bpm 73 bpm [facility] Body weight 151 lbs 151 lbs [facility] Diastolic blood 72 mmHg 72 mmHg [facility] Systolic blood 103 mmHg 103 mmHg [facility] Respiratory rate 18 bpm 18 bpm [facility] Heart rate 82 bpm 82 bpm [facility] Body temperature 96.9 Fahrenheit 96.9 Fahrenhei t [facility] Body weight 151 lbs 151 lbs [facility] Diastolic blood 70 mmHg 70 mmHg [facility] Systolic blood 104 mmHg 104 mmHg [facility] Respiratory rate 82 bpm 82 bpm [facility] Heart rate 70 bpm 70 bpm [facility] Body temperature 96.9 Fahrenheit 96.9 Fahrenhei t [facility] Diastolic blood 69 mmHg 69 mmHg [facility] Systolic blood 108 mmHg 108 mmHg [facility] Respiratory rate 18 bpm 18 bpm [facility] Heart rate 90 bpm 90 bpm [facility] Body temperature 97.1 Fahrenheit 97.1 Fahrenhei t [facility] [facility] Diastolic blood 69 mmHg 69 mmHg [facility] Systolic blood 114 mmHg 114 mmHg [facility] Respiratory rate 18 bpm 18 bpm [facility] Heart rate 68 bpm 68 bpm [facility] Body temperature 97.1 Fahrenheit 97.1 Fahrenhei t [facility] Diastolic blood 80 mmHg 80 mmHg [facility] Systolic blood 130 mmHg 130 mmHg [facility] Respiratory rate 18 bpm 18 bpm [facility] Heart rate 99 bpm 99 bpm [facility] Body temperature 93.2 Fahrenheit 93.2 Fahrenhei t [facility] Diastolic blood 75 mmHg 75 mmHg [facility] Systolic blood 121 mmHg 121 mmHg [facility] Respiratory rate 18 bpm 18 bpm [facility] Heart rate 75 bpm 75 bpm [facility] Body temperature 93.2 Fahrenheit 93.2 Fahrenhei t [facility] Diastolic blood 74 mmHg 74 mmHg [facility] Systolic blood 106 mmHg 106 mmHg [facility] Heart rate 78 bpm 78 bpm [facility] Diastolic blood 77 mmHg 77 mmHg [facility] Systolic blood 117 mmHg 117 mmHg [facility] Respiratory rate 18 bpm 18 bpm [facility] Heart rate 63 bpm 63 bpm [facility] Body temperature 97.1 Fahrenheit 97.1 Fahrenhei t [facility] Respiratory rate 17 bpm 17 bpm [facility] Body temperature 97.0 Fahrenheit 97.0 Fahrenhei t [facility] Diastolic blood 74 mmHg 74 mmHg [facility] Systolic blood 114 mmHg 114 mmHg [facility] Heart rate 66 bpm 66 bpm [facility] Diastolic blood 68 mmHg 68 mmHg [facility] Systolic blood 106 mmHg 106 mmHg [facility] Heart rate 74 bpm 74 bpm [facility] Diastolic blood 66 mmHg 66 mmHg [facility] Systolic blood 109 mmHg 109 mmHg [facility] Respiratory rate 19 bpm 19 bpm [facility] Heart rate 59 bpm 59 bpm [facility] Body temperature 97.1 Fahrenheit 97.1 Fahrenhei t [facility] Diastolic blood 65 mmHg 65 mmHg [facility] Systolic blood 102 mmHg 102 mmHg [facility] Respiratory rate 18 bpm 18 bpm [facility] Heart rate 93 bpm 93 bpm [facility] Body temperature 97.2 Fahrenheit 97.2 Fahrenhei t [facility] Heart rate 72 bpm 72 bpm [facility] Body temperature 97.2 Fahrenheit 97.2 Fahrenhei t [facility] Diastolic blood 86 mmHg 86 mmHg [facility] Systolic blood 110 mmHg 110 mmHg [facility] Respiratory rate 18 bpm 18 bpm [facility] Body weight 149 lbs 149 lbs [facility] Body weight 149 lbs 149 lbs [facility] Respiratory rate 17 bpm 17 bpm [facility] Body temperature 97.2 Fahrenheit 97.2 Fahrenhei t [facility] Diastolic blood 70 mmHg 70 mmHg [facility] Systolic blood 123 mmHg 123 mmHg [facility] Heart rate 64 bpm 64 bpm [facility] Diastolic blood 67 mmHg 67 mmHg [facility] Systolic blood 117 mmHg 117 mmHg [facility] Respiratory rate 18 bpm 18 bpm [facility] Heart rate 71 bpm 71 bpm [facility] Body temperature 97.5 Fahrenheit 97.5 Fahrenhei t [facility] Diastolic blood 66 mmHg 66 mmHg [facility] Systolic blood 116 mmHg 116 mmHg [facility] Respiratory rate 18 bpm 18 bpm [facility] Heart rate 55 bpm 55 bpm [facility] Body temperature 97.5 Fahrenheit 97.5 Fahrenhei t [facility] Diastolic blood 66 mmHg 66 mmHg [facility] Systolic blood 107 mmHg 107 mmHg [facility] Respiratory rate 18 bpm 18 bpm [facility] Heart rate 87 bpm 87 bpm [facility] Body temperature 96.5 Fahrenheit 96.5 Fahrenhei t [facility] Diastolic blood 66 mmHg 66 mmHg [facility] Systolic blood 118 mmHg 118 mmHg [facility] Heart rate 82 bpm 82 bpm [facility] Diastolic blood 64 mmHg 64 mmHg [facility] Systolic blood 117 mmHg 117 mmHg [facility] Respiratory rate 17 bpm 17 bpm [facility] Heart rate 80 bpm 80 bpm [facility] Body temperature 96.0 Fahrenheit 96.0 Fahrenhei t [facility] ID Date Data Source [id number] 08/15/2020 12:27:30 PM EDT [facility] Name Value Range Interpretation Code Description Data Source(s) Body weight Measured 153 lb 153 lb [facility] Body weight Measured 144 lb 144 lb [facility] ID Date Data Source [id number] 07/27/2020 10:43:20 PM EDT [facility] Name Value Range Interpretation Code Description Data Source(s) Body weight Measured 144 lb 144 lb [facility] ID Date Data Source [id number] 2020 09:05:06 PM EDT [facility] Name Value Range Interpretation Code Description Data Source(s) Body weight Measured 144 lb 144 lb [facility] ID Date Data Source [id number] 07/16/2020 11:43:13 AM EDT [facility] Name Value Range Interpretation Code Description Data Source(s) Body weight Measured 144 lb 144 lb [facility] ID Date Data Source [id number] 07/03/2020 12:18:53 PM EDT [facility] Value Range Interpretation Code Description Data Source(s) Body weight Measured 144 lb 144 lb [facility] Body weight Measured 133 lb 133 lb [facility] Body weight Measured 152 lb 152 lb [facility] ID Date Data Source [id number] 05/15/2020 02:35:53 PM EDT [facility] Value Range Interpretation Code Description Data Source(s) Body weight Measured 152 lb 152 lb [facility]
--- NOTE | 2020-08-17 19:21 | PDOC ---
History of Present Illness - General Chief Complaint: Laceration Stated Complaint: LACERATION Time Seen by Provider: 08/17/20 19:02 History Source: Patient - History of Present Illness Timing/Duration: reports: this evening Severity: Yes: mild Location: reports: hands Past History - Medical History Allergies/Adverse Reactions: Allergies Allergy/AdvReac Type Severity Reaction Status Date / Time risperidone [From Risperdal] AdvReac Verified 07/26/20 14:00 Home Medications: Ambulatory Orders Risperidone Microspheres [Risperdal Consta] 25 mg IM ASDIR 07/26/20 Trihexyphenidyl HCl 1 mg PO ASDIR 07/26/20 COPD: No Psychiatric Problems: Yes (SCHIZOPHRENIA) - Psycho-Social/Smoking History Smoking Status: No Smoking History: Never smoked Number of Cigarettes Smoked Daily: 0 - Substance Abuse Hx (Audit-C & DAST Scrn) How often the patient has a drink containing alcohol: Never Score: In Men: 4 or > Positive; In Women: 3 or > Positive: 0 Screen Result (Pos requires Nsg. Audit-10AR): Negative Review of Systems - Review of Systems Integumentary: Yes: Other (wound) *Physical Exam - Vital Signs Last Vital Signs Temp Pulse Resp BP Pulse Ox 97.8 F 62 20 114/66 99 08/17/20 18:57 08/17/20 18:57 08/17/20 18:57 08/17/20 18:57 08/17/20 18:57 - Physical Exam General Appearance: Yes: Appropriately Dressed. No: Apparent Distress HEENT: positive: Normal Voice Neck: positive: Supple Respiratory/Chest: negative: Respiratory Distress Integumentary: positive: Other (5-8mm cutaneous lac to volar aspect of middle phlanx of L 5th digit, minimal bleed to site) Medical Decision Making - Medical Decision Making 08/17/20 19:21 25-year-old male history of schizophrenia here with laceration to L 5th digit after handling knife today. No sensory changes. States tetanus up-to-date. Patient well-appearing and stable with cutaneous lac to volar aspect of middle phalanx on exam. Local wound care and dressing placed. To return as needed Discharge - Discharge Information Problems reviewed: Yes Clinical Impression/Diagnosis: Finger laceration Qualifiers: Encounter type: initial encounter Finger: little finger Damage to nail status: without damage Foreign body presence: without foreign body Laterality: left Qualified Code(s): S61.217A - Laceration without foreign body of left little finger without damage to nail, initial encounter Condition: Good Disposition: HOME - Follow up/Referral Referrals: Velma Lambert MD [Primary Care Provider] - - Patient Discharge Instructions Patient Printed Discharge Instructions: DI for Minor Laceration - Post Discharge Activity
== END 2020-08-17 19:47 | disposition home or self-care (01) ==
LOC: JER 18:50 → JERFT 18:50
DX: S61.217A Laceration without foreign body of left little finger without damage to nail, initial encounter (principal)
CPT/HCPCS: 99282-25

== ENCOUNTER 2020-08-20 12:19 | Emergency (ER) | payer OTHER ==
--- NOTE | 2020-08-20 12:21 | PDOC ---
Rapid Medical Evaluation Chief Complaint: Revisit,Wound Recheck Time Seen by Provider: 08/20/20 12:20 Medical Evaluation: Allergies Allergy/AdvReac Type Severity Reaction Status Date / Time risperidone [From Risperdal] AdvReac Verified 07/26/20 14:00 08/20/20 12:20 Pt presents for wound check of his L 5th digit Exam: bandaid in place Orders: nothing Pt to proceed to the ER for evaluation Discharge Disposition - Diagnosis Visit for wound check - Referrals - Patient Instructions - Post Discharge Activity
[2020-08-20 12:23] VITALS: BP 110/69; PULSE 76; TEMP 98.5; BMI 21.8
--- NOTE | 2020-08-20 12:35 | PDOC ---
Suture Removal/Wound Check HPI - History of Present Illness Chief Complaint: Revisit,Wound Recheck Stated Complaint: LFT HAND WOUND CHECK (FINGER) Time Seen by Provider: 08/20/20 12:20 History Source: Yes: Patient Treated at: [facility] Date of Last ED visit: 08/17/20 Past History - Medical History Allergies/Adverse Reactions: Allergies Allergy/AdvReac Type Severity Reaction Status Date / Time risperidone [From Risperdal] AdvReac Verified 08/20/20 12:22 Home Medications: Ambulatory Orders Risperidone Microspheres [Risperdal Consta] 25 mg IM ASDIR 07/26/20 Trihexyphenidyl HCl 1 mg PO ASDIR 07/26/20 COPD: No Psychiatric Problems: Yes (SCHIZOPHRENIA) - Psycho-Social/Smoking History Smoking Status: No Smoking History: Never smoked Number of Cigarettes Smoked Daily: 0 Information on smoking cessation initiated: No - Substance Abuse Hx (Audit-C & DAST Scrn) How often the patient has a drink containing alcohol: Never Score: In Men: 4 or > Positive; In Women: 3 or > Positive: 0 Screen Result (Pos requires Nsg. Audit-10AR): Negative In the last yr the pt used illegal drug/Rx for NonMed reason: No Score: Yes response is considered Positive: 0 Screen Result (Positive result requires Nsg. DAST-10): Negative *Review of Systems - Review of Systems Constitutional: No: Chills, Fever Integumentary: No: Erythema *Physical Exam - Vital Signs Last Vital Signs Temp Pulse Resp BP Pulse Ox 98.5 F 76 19 110/69 97 08/20/20 12:20 08/20/20 12:20 08/20/20 12:20 08/20/20 12:20 08/20/20 12:20 - Physical Exam General Appearance: Yes: Appropriately Dressed. No: Apparent Distress HEENT: positive: Normal Voice Neck: positive: Supple Respiratory/Chest: negative: Respiratory Distress Integumentary: positive: Dry, Warm, Other (well healing superfical lac to volar aspect of L 5th digit, no e/o infection) Neurologic: positive: Fully Oriented, Alert Medical Decision Making - Medical Decision Making 08/20/20 12:33 25-year-old male with history of schizophrenia here for wound check. Patient was seen by myself 2 days ago for superficial laceration to L 5th digit after handling knife. Patient was told to return only as needed. Patient denies any worsening pain, redness, discharge, fever or chills but states wound still "stings". Wound well healign w/ no e/o infection today. Dc w/ reassurance Discharge - Discharge Information Problems reviewed: Yes Clinical Impression/Diagnosis: Visit for wound check Disposition: HOME - Follow up/Referral - Patient Discharge Instructions Additional Instructions: Your wound appears well-healing with no evidence of infection at this time. - Post Discharge Activity
--- OUTSIDE RECORDS SUMMARY | 2020-08-20 13:29 | XMS ---
:1995 Author Organization [facility] Care Team Providers Name Role Phone ED STAFF PHYSICIAN, AISLINN Unavailable Unavailable Craig Vences MD Unavailable Unavailable [...] Unavailable La Vences MD Unavailable Unavailable La eVnces MD Unavailable Unavailable La Vences MD Unavailable [...] is protected by Article 27-F of the [facility] Public Health law. If you continue you may haveaccess to information: Regarding HIV / AIDS; Provided by facilities licensed or operated by the [facility] Office of Mental Health; or Provided by the [facility] Office for People With Developmental Disabilities. If such information is present, then the following [facility] mandated warning applies: This information has been [...] law may result in a fine or chcf sentence or both. A general authorization for the release of medical or other information is NOT sufficient authorization for further disclosure. Allergies and Adverse Reactions Type Description Substance Reaction Status Data Source(s ) Drug allergy No Known Allergies No Known NO KNOWN ALLERG [place] [facility] Encounters Encounter Providers Location Date Indications Data Source(s ) Inpatient Attender: STACI ALAS-3N 07/27/2020 [facility] FAEZAttender: 10:30:00 PM EDT Hospit al AGA HICKMAN - 08/08/2020 MDAdmitter: Craig 11:01:00 PM EDT Ru ESCALANTE Patient discharged. Outpatient [facility] 07/27/2020 08:28:00 PM EDT - [address] [place] [address] 11:43:00 PM EDT Patient discharged. Emergency Attender: SEVEN ED STAFF H 07/27/2020 10:38:00 AM [facility] PHYSICIANAttender: STAFF ED EDT - 07/27/2020 [facility] STAFF PHYSICIANAdmitter: SEVEN 09:31:00 PM EDT ED STAFF PHYSICIANReferrer: ZUNASSIGNED Patient discharged. Outpatient STV 2020 06:08:00 PM EDT [facility] Admission cancelled. Disregard status an d admitted date. Outpatient Attender: Lisa STV 07/01/2020 [facility] DNPAdmitter: 02:05:00 PM EDT H ospital PACHECO MORELOS Emergency Attender: Des 06/12/2020 [facility] Battiato 01:16:00 PM EDT - AM.SARWAT Hospi onesimo 06/12/2020 04:58:00 PM EDT GENERAL ILLNESS AM.SARWAT Patient discharged. Inpatient Attender: AGA MARYLOU STV-3N 05/13/2020 03:09:00 PM [facility] MDAdmitter: ELENA EDT - 06/24/2020 H [facility]spital ALICIA 10:24:00 PM EDT Patient discharged. Outpatient ST 05/13/2020 02:38:00 PM EDT - [address] [place] [address] 02:35:00 PM EDT Patient discharged. Emergency Attender: AISLINN ED STAFF H 05/12/2020 08:22:00 PM [facility] PHYSICIANAttender: STAFF ED EDT - 05/13/2020 [facility] STAFF PHYSICIANAdmitter: 04:52:00 PM EDT AISLINN ED STAFF PHYSICIAN Patient discharged. Unlisted evaluation and 03/14/2019 04:28:00 PM EDT [facility] (Mental Health management service - 04/25/2019 03:15:00 PM [facility]) EDT Unlisted evaluation and 07/20/2018 04:00:00 AM [facility]) Medications Medication Brand Start Product Dose Route Administrative Pharmacy [facility] Indications Reaction Description Data Name Date Form Instructions Instructions Source(s) Risperidone risper ORAL complet risper iDONE [facility] 0.5 MG Oral iDONE 2019 Table ed - 0.5 MG Vi ncents Tablet - 0.5 12:00: t ORAL Tablet Hos pital MG 00 AM ORAL EDT Tablet Trihexyphen Trihex ORAL complet Trihex ypheni [facility] idyl ypheni 2019 Table ed dyl HCl - 2 Alcides nts Hydrochlori dyl 12:00: t MG ORAL Hos pital de 2 MG HCl - 00 AM Tablet Oral Tablet 2 MG EDT ORAL Tablet Risperidone Risper INTRAM complet Risp erDAL [facility] 12.5 MG/ML PETE 2019 Eliza USCULA ed Consta - 25 [facility] Injectable Consta 12:00: gram R MG Hospi onesimo Suspension - 25 00 AM INTRAMUSCULA [Risperdal] MG EDT R [...] complet risper iDONE [facility] 3 MG Oral iDO2019 Table ed - 3 MG ORAL V [...] Benztr .0 Oral active NE TSMART mesylate opin2019 Table (Mental MG Oral Mesyla 05:00: t Health Tablet te 00 AM Associatio EST n of Debbie r) Risperidone risper .0 Oral active NE TSMART 2 MG Oral iDO2019 Table (Mental Tablet 05:00: t Health 00 AM Associatio EST n of Debbie r) Cholecalcif D3-50 .0 Oral active NET SMART stevie 89402 2018 Capsu (Mental UNT Oral 05:00: le Health Capsule 00 AM Associatio EST n of Debbie r) benztropine Benztr .0 Oral active NE TSMART mesylate 1 opin2018 Table (Mental MG Oral Mesyla 05:00: t Health Tablet te 00 AM Associatio EST n of Debbie r) Risperidone risper 11/13/ 1.0 Oral active NE TSMART 2 MG Oral iDONE 2018 Table (Mental Tablet 05:00: t Health 00 AM Associatio EST n of [facility]) Risperidone risper 1.0 Oral active NE TSMART 4 MG Oral iDONE 2018 Table (Mental Tablet 04:00: t Health 00 AM Associatio EDT n of [facility]) benztropine Benztr 1.0 Oral active NE TSMART mesylate 1 opine 2018 Table (Mental MG Oral Mesyla 04:00: t Health Tablet te 00 AM Associatio EDT n of [facility]) Risperidone Risper 37.5 Intram active NETSMART 18.8 MG/ML 2018 Eliza uscula (Menta l Injectable Consta 04:00: gram r Healt h Suspension 00 AM Associat io [Risperdal] EDT n of [facility]) benztropine Benztr 1.0 Oral active NE TSMART mesylate 1 opin2018 Table (Mental MG Oral Mesyla 04:00: t Health Tablet te 00 AM Associatio EDT n of [facility]) Cholecalcif D3-50 .0 Oral active NET SMART stevie 96217 2018 Capsu (Mental UNT Oral 04:00: le Health Capsule 00 AM Associatio EDT n of [facility]) Sertraline Sertra ORAL complet Sertral ine [...] Tablet No known complet White medications ed [place] [facility] Insurance Providers Payer name Policy type Policy ID Covered Covered green party's Policy P andre / Coverage green party ID relationship to [place] Inf ormation type [place] SELF PAY 0000 Self 0000 MEDICAID INP [id number] Self [id number] J PSYCH [facility] MVP [id number] Self [id number] HEALTHPLAN [id number] (PS) [id number] Son [id number] LOCAL [id number] Son [id number] BENEFIT FUND LOCAL [id number] - [id number] CHILD [id number] [facility] MEDICAID OP [id number] Self [id number] SELF PAY 0000 Self 0000 LOCAL 1199 [id number] Son [id number] BENEFIT FUND MVP/HHP O [id number] 01 [id number] O [facility] ER [facility]ISIT O [facility] 01 [facility] - SV INPATIENT MEDICAID INP [id number] Self [id number] J PSYCH SELF PAY [id number] Son [id number] LOCAL [id number] [place] [id number] 1 [id number] Problems, Conditions, and Diagnoses Code Display Name Description Problem Type Effective Data Dates Source(s) [id number] Disorganized Disorganized Complaint 07/01/2020 [facility] schizophrenia schizophrenia 12:00:00 PM [facility] (disorder) [facility] [id number] Disorganized Disorganized Complaint 07/01/2020 [facility] schizophrenia schizophrenia 12:00:00 PM [facility] (disorder) [facility] [id number] Disorganized Disorganized Complaint 07/01/2020 [facility] schizophrenia schizophrenia 12:00:00 PM [facility] (disorder) [facility] [id number] Disorganized Disorganized Complaint 07/01/2020 [facility] schizophrenia schizophrenia 12:00:00 PM [facility] (disorder) [facility] F20.9 Schizophrenia, SCHIZOPHRENIA, Diagnosis 07/27/2020 [facility] unspecified UNSPECIFIED 10:38:00 AM [facility] F91.9 Conduct disorder, CONDUCT DISORDER, Diagnosis 07/27/2020 [facility] unspecified UNSPECIFIED 10:38:00 AM [facility] Z11.59 Encounter for Z11.59 Diagnosis 06/12/2020 [place] screening for other 02:27:00 PM Hosp ital viral diseases EDT F20.9 Schizophrenia, F20.9 Diagnosis 06/12/2020 [place] unspecified 02:27:00 PM Hospital EDT R06.00 Dyspnea, unspecified R06.00 Diagnosis 06/12/2020 [place] 02:27:00 PM Hospital EDT R07.89 Other chest pain R07.89 Diagnosis 06/12/[address] [place] 02:27:00 PM Hospital EDT F20.81 Schizophreniform Schizophreniform Diagnosis 06/14/2018 Sa int disorder disorder 08:54:00 AM [facility] EDT [facility] Surgeries/Procedures Procedure Description Date Indications Data Source(s) Diagnostic radiography of 06/12/2020 Wh ite [place] chest, combined 12:00:00 AM Hospital posteroanterior and lateral EDT (procedure) Electrocardiographic procedure 06/12/2020 [place] (procedure) 12:00:00 AM Hospital EDT Results ID Date Data Source [id number] 07/29/2020 12:00:00 AM EDT [facility] Name Value Range Interpretation Code Description Data Alyssa rce(s) Supporting Document(s ) 2019-nCoV [facility] RNA XXX GINA+probe- Imp This lab was ordered by [facility] and reported by [employer] [facility]. ID Date Data Source Liver 07/27/2020 11:49:00 AM EDT [facility] [id number] Name Value Range Interpretation Description Data Sup [...] s"> (3.5-5.0 G/DL)</content> ID Date Data Source [id number] 07/27/2020 11:49:[address] [facility] 0400 Name Value Range Interpretation Description Data [...] high <content [facility] volume [Entitic normal styleCode="Bold [facility] volume] in Blood ">Mean Platelet Medical by Automated Volume Center count </content>12.3 FL H<content styleCode="Ital ics"> (8.0-11.0 FL)</content> ID Date Data Source GFR(Creatinine).[id number] 07/27/2020 11:49:00 AM EDT [facility] 0-0400 Name Value Range Interpretation Code Description Data Alyssa rce(s) Supporting Document(s ) UNK > 60 <content [facility] styleCode="Bold"> Medical Cent er EGFR </content>147 GFR<content styleCode="Italic s"> (> 60 GFR)</content> ID Date Data Source [id number] 07/27/2020 11:49:00 AM EDT [facility] Name Value Range Interpretation Description Data Sup porting Code Source(s) Document(s ) Chloride 98-107 <content [facility] [Moles/volume] in styleCode="Bold"> [facility] Serum or Plasma Chloride Medical </content>105 Center MEQ/L<content styleCode="Italic s"> (98-107 MEQ/L)</content> Sodium 137-145 <content [facility] [Moles/volume] in styleCode="Bold"> [facility] Serum or Plasma Sodium Medical </content>138 Center MEQ/L<content styleCode="Italic s"> (137-145 MEQ/L)</content> Potassium 3.5-5.3 <content [facility] [Moles/volume] in styleCode="Bold"> [facility] Serum or Plasma Potassium Medical </content>4.3 Center MEQ/L<content styleCode="Italic s"> (3.5-5.3 MEQ/L)</content> Calcium 8.4-10. <content Saint [Mass/volume] in 2 styleCode="Bold"> Sg hs Serum or Plasma Calcium Medical </content>10.0 Center MG/DL<content styleCode="Italic s"> (8.4-10.2 MG/DL)</content> UNK 9-20 <content Saint styleCode="Bold"> Art BUN </content>13 Medical MG/DL<content Center styleCode="Italic s"> [...] s"> (38-126 IU/L)</content> ID Date Data Source [id number] 07/27/2020 11:30:[address] [facility] 0 Name Value Range Interpretation Description Data Sup porting Code Source(s) Document(s ) UNK CLEAR <content Saint styleCode="Alberta Robbs d">Urine Medical Clarity Center </content>STEVE R <content styleCode="Josy lics"> (CLEAR )</content> Color of Urine YELLOW <content Saint styleCode="Alberta Robbs d">Color, Medical Urine Center </content>YELL OW <content styleCode="Josy lics"> (YELLOW )</content> Glucose NEGATIVE <content [facility] [Mass/volume] styleCode="Alberta Robbs in Urine by d">Urine Medical Test strip Glucose Center </content>NEGA TIVE MG/DL<content styleCode="Josy lics"> (NEGATIVE MG/DL)</conten t> Ketones NEGATIVE <content [facility] [Mass/volume] styleCode="Alberta Art in Urine by d">Urine Medical Test strip [...] by Test d">Urine Medical strip Specific Center [place] </content>1.02 5 <content styleCode="Josy lics"> (1.015-1.025 )</content> [...] lics"> (NEGATIVE )</content> ID Date Data Source [id number] 07/27/2020 11:30:[address] [facility] -0400 Name Value Range Interpretation Description Data Sup porting Code Source(s) Document(s ) Cannabinoids <content Saint [Presence] in styleCode="Alberta Art Urine by Screen d">Cannabinoid Medical method >50 ng/mL Center </content>NEGA TIVE NG/ML (Reference Range: not available)<br/ > ID Date Data Source [id number] 07/27/2020 12:00:00 AM [facility] Name Value Range Interpretation Code Description Data Alyssa rce(s) Supporting Document(s ) 2019-nCoV [facility] RNA XXX GINA+probe- Imp This lab was ordered by [facility] and reported by [employer] [facility]. ID Date Data Source [id number] 06/12/2020 01:52:00 PM EDT [facility] TEST PERFORMED BY [employer] ULTRA SENSITIVE CENTAUR CHEMILUMINESCENCE METHOD. Name Value Range Interpretation Description Data Sup porting Code Source(s) Document(s ) Troponin < 0.01 [place] I.cardiac ng/mL Hospital [Mass/volume ] in Serum or Plasma ID Date Data Source [id number] 06/12/2020 01:52:00 PM EDT [facility] Name Value Range Interpretation Description Data Sup porting Code Source(s) Document(s ) Aspartate 31 U/L [facility] aminotransferase [place] [Enzymatic Hospital activity/volume] in Serum or Plasma ID Date Data Source [id number] 06/12/2020 01:52:00 PM EDT [facility] Name Value Range Interpretation Description Data Sup porting Code Source(s) Document(s ) Alanine 56 U/L [facility] aminotransferase [place] [Enzymatic Hospital activity/volume] in Serum or Plasma ID Date Data Source [id number] 06/12/2020 01:52:00 PM EDT [facility] Name Value Range Interpretation Description Data Sup porting Code Source(s) Document(s ) Alkaline 57 U/L [place] phosphatase Hospital [Enzymatic activity/volume ] in Serum or Plasma ID Date Data Source [id number] 06/12/2020 01:52:00 PM EDT [facility] Name Value Range Interpretation Description Data Sup porting Code Source(s) Document(s ) Bilirubin.t 0.3 mg/dL [facility] [Mass/volum e] in Serum or Plasma ID Date Data Source [id number] 06/12/2020 01:52:00 PM EDT [facility] Value Range Interpretation Code Description Data Alyssa rce(s) Supporting Document(s ) Albumin/Glob 2.6 [facility]Mass [facility] Ratio] in Serum or Plasma ID Date Data Source [id number] 06/12/2020 01:52:00 PM EDT [facility] Value Range Interpretation Description Data Sup porting Code Source(s) Document(s ) Albumin 4.6 g/dL [place] [Mass/volume Hospital ] in Serum or Plasma ID Date Data Source [id number] 06/12/2020 01:52:00 PM EDT [facility] Name Value Range Interpretation Description Data Sup porting Code Source(s) Document(s ) Protein 6.4 g/dL [place] [Mass/volume Hospital ] in Serum or Plasma ID Date Data Source [id number] 06/12/2020 01:52:00 PM EDT [facility] Value Range Interpretation Description Data Sup porting Code Source(s) Document(s ) Calcium 9.2 mg/dL [place] [Mass/volume Hospital ] in Serum or Plasma ID Date Data Source [id number] 06/12/2020 01:52:00 PM EDT [facility] Name Value Range Interpretation Code Description Data Alyssa rce(s) Supporting Document(s ) Urea 23.8 [place] nitrogen/Cre Hospital atinine [Mass Ratio] in Serum or Plasma ID Date Data Source [id number] 06/12/2020 01:52:00 PM EDT [facility] Name Value Range Interpretation Description Data Sup porting Code Source(s) Document(s ) Creatinine 0.8 mg/dL [place] [Mass/volume] Hospital in Serum or Plasma ID Date Data Source [id number] 06/12/2020 01:52:00 PM EDT [facility] Name Value Range Interpretation Description Data Sup porting Code Source(s) Document(s ) Urea 19 mg/dL [place] nitrogen Hospital [Mass/volume ] in Serum or Plasma ID Date Data Source [id number] 06/12/2020 01:52:00 PM EDT [facility] Value Range Interpretation Code Description Data Alyssa rce(s) Supporting Document(s ) Anion gap in 10 [place] Serum or [facility] Plasma ID Date Data Source [id number] 06/12/2020 01:52:00 PM EDT [facility] Value Range Interpretation Description Data Sup porting Code Source(s) Document(s ) Carbon 31 mmol/L [place] dioxide, Hospital total [Moles/volu me] in Serum or Plasma ID Date Data Source [id number] 06/12/2020 01:52:00 PM EDT [facility] Name Value Range Interpretation Description Data Sup porting Code Source(s) Document(s ) Chloride 104 [place] [Moles/volum mmol/L Hospital e] in Serum or Plasma ID Date Data Source [id number] 06/12/2020 01:52:00 PM EDT [facility] Name Value Range Interpretation Description Data Sup porting Code Source(s) Document(s ) Potassium 4.2 [place] [Moles/volume mmol/L Hospital ] in Serum or Plasma ID Date Data Source [id number] 06/12/2020 01:52:00 PM EDT [facility] Name Value Range Interpretation Description Data Sup porting Code Source(s) Document(s ) Sodium 141 mmol/L [place] [[facility]] in Serum or Plasma ID Date Data Source [id number] 06/12/2020 01:52:00 PM EDT [facility] Value Range Interpretation Description Data Sup porting Code Source(s) Document(s ) Glucose 95 mg/dL [place] [Mass/volume Hospital ] in Serum or Plasma ID Date Data Source [id number] 06/12/2020 01:52:00 PM EDT [facility] Value Range Interpretation Description Data Sup porting Code Source(s) Document(s ) Differential AUTOMATED [place] cell count [facility] method - Blood ID Date Data Source [id number] 06/12[facility] Interpret[facility] Description Data Sup porting Code Source(s) Document(s ) Immature 0.01 [place] granulocytes 10*3/uL Hospital [#/volume] in Blood by Automated count ID Date Data Source [id number] 06/12/2020 [facility] Interpretation Description Data Sup porting Code Source(s) Document(s ) Basophils 0.03 [place] [#/volume] in 10*3/uL Hospital Blood by Automated count ID Date Data Source [id number] 06/12/2020 01:52:00 PM EDT [facility] Value Range Interpretation Description Data Sup porting Code Source(s) Document(s ) Eosinophils 0.07 [place] [#/volume] in 10*3/uL Hospital Blood by Automated count ID Date Data Source [id number] 06/12/2020 [facility] Interpretation Description Data Sup porting Code Source(s) Document(s ) Monocytes 0.56 [place] [#/volume] in 10*3/uL Hospital Blood by Automated count ID Date Data Source [id number] 06/12/2020 01:52:00 PM EDT [facility] Value Range Interpretation Description Data Sup porting Code Source(s) Document(s ) Lymphocytes 1.88 [place] [#/volume] in 10*3/uL Hospital Blood by Automated count ID Date Data Source [id number] 06/12/2020 01:52:00 PM EDT [facility] Value Range Interpretation Description Data Sup porting Code Source(s) Document(s ) Neutrophils 2.69 [place] [#/volume] in 10*3/uL Hospital Blood by Automated count ID Date Data Source [id number] 06/12/2020 01:52:00 PM EDT [facility] Value Range Interpretation Description Data Sup porting Code Source(s) Document(s ) Nucleated 0.0 % [place] erythrocytes/10 Hospital 0 leukocytes [Ratio] in Blood by Automated count ID Date Data Source [id number] 06/12/2020 01:52:00 PM EDT [facility] Value Range Interpretation Description Data Sup porting Code Source(s) Document(s ) Immature 0.2 % [place] granulocytes/10 Hospital 0 leukocytes in Blood by Automated count ID Date Data Source [id number] 06/12/2020 01:52:00 PM EDT [facility] Value Range Interpretation Description Data Sup porting Code Source(s) Document(s ) Basophils/100 0.6 % [place] leukocytes in Hospital Blood by Automated count ID Date Data Source [id number] 06/12/2020 01:52:00 PM EDT [facility] Value Range Interpretation Description Data Sup porting Code Source(s) Document(s ) Eosinophils/100 1.3 % [place] leukocytes in Hospital Blood by Automated count ID Date Data Source [id number] 06/12/2020 01:52:00 PM EDT [facility] Name Value Range Interpretation Description Data Sup porting Code Source(s) Document(s ) Monocytes/100 10.7 % [place] leukocytes in Hospital Blood by Automated count ID Date Data Source [id number] 06/12/2020 01:52:00 PM EDT [facility] Name Value Range Interpretation Description Data Sup porting Code Source(s) Document(s ) Lymphocytes/10 35.9 % [place] 0 leukocytes Hospital in Blood by Automated count ID Date Data Source [id number] 06/12/2020 01:52:00 PM EDT [facility] Name Value Range Interpretation Description Data Sup porting Code Source(s) Document(s ) Neutrophils/10 51.3 % [place] 0 leukocytes Hospital in Blood by Automated count ID Date Data Source [id number] 06/12/2020 01:52:00 PM EDT [facility] Name Value Range Interpretation Description Data Sup porting Code Source(s) Document(s ) Platelet mean 12.5 fL [place] volume Hospital [Entitic volume] in Blood by Automated count ID Date Data Source [id number] 06/12/2020 01:52:00 PM EDT [facility] Name Value Range Interpretation Description Data Sup porting Code Source(s) Document(s ) Platelets 132 [place] [#/volume] in 10*3/uL Hospital Blood by Automated count ID Date Data Source [id number] 06/12/2020 01:52:00 PM EDT [facility] Name Value Range Interpretation Description Data Sup porting Code Source(s) Document(s ) Erythrocyte 11.8 % [place] distribution Hospital width [Ratio] by Automated count ID Date Data Source [id number] 06/12/2020 01:52:00 PM EDT [facility] Name Value Range Interpretation Description Data Sup porting Code Source(s) Document(s ) Erythrocyte mean 33.3 [place] corpuscular g/dL Hospital hemoglobin concentration [Mass/volume] by Automated count ID Date Data Source [id number] 06/12/2020 01:52:00 PM EDT [facility] Value Range Interpretation Description Data Sup porting Code Source(s) Document(s ) Erythrocyte 29.2 pg [facility] corpuscular hemoglobin [Entitic mass] by Automated count ID Date Data Source [id number] 06/12/2020 01:52:00 PM EDT [facility] Value Range Interpretation Description Data Sup porting Code Source(s) Document(s ) Erythrocyte 87.8 fL [facility] corpuscular volume [Entitic volume] by Automated count ID Date Data Source [id number] 06/12/2020 01:52:[facility] [facility] Value Range Interpretation Description Data Sup porting Code Source(s) Document(s ) Hematocrit 41.8 % [place] [Volume Hospital Fraction] of Blood by Automated count ID Date Data Source [id number] 06/12/2020 01:52:00 PM EDT [facility] Value Range Interpretation Description Data Sup porting Code Source(s) Document(s ) Hemoglobin 13.9 g/dL [place] [Mass/volume] Hospital in Blood ID Date Data Source [id number] 06/12/2020 01:52:00 PM EDT [facility] Value Range Interpretation Description Data Sup porting Code Source(s) Document(s ) Erythrocytes 4.76 [place] [#/volume] in 10*6/uL Hospital Blood by Automated count ID Date Data Source [id number] 06/12/2020 01:52:00 PM EDT [facility] Name Value Range Interpretation Description Data Sup porting Code Source(s) Document(s ) Leukocytes 5.2 [place] [#/volume] in 10*3/uL Hospital Blood by Automated count ID Date Data Source [id number] 05/13/2020 06:17:00 AM EDT [facility] 0 Name Value Range Interpretation Description Data Sup porting Code Source(s) Document(s ) Glucose NEGATIVE <content [facility] [Mass/volume] styleCode="[place] in Urine by d">Urine Medical Test strip Glucose Center </content>NEGA TIVE MG/DL<content styleCode="Josy lics"> (NEGATIVE MG/DL)</conten t> Color of Urine YELLOW <content Saint styleCode="Alberta Robbs d">Color, Medical Urine Center </content>AMBE R <content styleCode="Josy lics"> (YELLOW )</content> UNK CLEAR <content Saint styleCode="Alberta Robbs d">Urine Medical Clarity Center </content>Sl CLOUDY <content [...] by Test d">Urine Medical strip Specific Center [place] </content>1.02 5 <content styleCode="Josy lics"> (1.015-1.025 )</content> Urobilinogen 0.2-1.0 <content [facility] [Units/volume] styleCode="Alberta Robbs in Urine by d">Urine Medical Test strip Urobilinogen Center </content>1.0 MG/DL<content styleCode="Josy lics"> (0.2-1.0 MG/DL)</conten t> Nitrite NEGATIVE <content [facility] [Presence] in styleCode="Alberta Art Urine by Test d">Urine Medical strip Nitrite Center </content>NEGA TIVE <content styleCode="Josy lics"> (NEGATIVE )</content> Protein NEGATIVE <content [facility] [Mass/volume] styleCode="[place]berta Art in Urine by d">Urine Medical Test strip Protein Center </content>NEGA TIVE MG/DL<content styleCode="Josy lics"> (NEGATIVE MG/DL)</conten t> pH of Urine by 4.5-8.0 <content Saint Test strip styleCode="Alberta Art d">Urine pH Medical </content>6.0 Center <content styleCode="Josy lics"> (4.5-8.0 )</content> UNK 0-3 <content Saint [...] lics"> (NEGATIVE )</content> UNK NONE SEEN <content styleCode="Alberta Art d">Epithelial Medical Cell Center </content>NONE SEEN HPF<content styleCode="Josy lics"> (NONE SEEN HPF)</content> UNK NONE SEEN <content Saint styleCode="Alberta Art d">Urine Mucus Medical </content>MODE Center RATE HPF<content styleCode="Josy lics"> (NONE SEEN HPF)</content> ID Date Data Source [id number] 05/13/2020 06:17:[address] [facility] 400 Name Value Range Interpretation Code Description Data Alyssa rce(s) Supporting Document(s ) UNK <item><content [facility] styleCode="Bold"> Medical Cent er Culture Report </content>
<t able><tbody><tr>< td>Specimen Number:</td><td>[id number]</td></tr ><tr><td>Sample Collection Date/Time: </td><td> 0 6:17 AM</td></tr><tr>< td>Specimen Source:</td><td>U RINE</td></tr><tr ><td>Urine Culture:</td><td> Collection Plate Date: 05/13/2020 06:22 </td></tr><tr><td >Culture Status:</td><td>P reliminary </td></tr><tr><td >Culture Report:</td><td>C ulture in progress </td></tr></tbody ></table></item> UNK <item><content [facility] styleCode="Bold"> Medical Cent er Culture Status </content>
<t able><tbody><tr>< td>Specimen Number:</td><td>[id number]</td></tr ><tr><td>Sample Collection Date/Time: </td><td>6/30/202 0 6:17 AM</td></tr><tr>< td>Specimen Source:</td><td>U RINE</td></tr><tr ><td>Culture Status:</td><td>P reliminary </td></tr><tr><td >Culture Report:</td><td>C ulture in progress </td></tr><tr><td >Urine Culture:</td><td> Collection Plate Date: 05/13/2020 06:22 </td></tr></tbody ></table></item> ID Date Data Source [id number] 05/13/2020 06:17:00 AM EDT [facility] -0400 Name Value Range Interpretation Description Data Sup porting Code Source(s) Document(s ) Cannabinoids <content [facility] [Presence] in styleCode="[facility] Urine by Screen d">Cannabinoid Medical method >50 ng/mL s [place] </content>NEGA TIVE NG/ML (Reference Range: not available)<br/ > ID Date Data Source [id number] 05/13/2020 05:59:00 AM EDT [facility] Name Value Range Interpretation Description Data Sup porting Code Source(s) Document(s ) Triglyceride < 150 <content [facility] [Mass/volume] in styleCode="[facility] Serum or Plasma d">Triglycerid [facility] </content>62 MG/DL<content styleCode="Josy lics"> (< 150 MG/DL)</conten t> UNK < 100 <content Saint styleCode="[facility] d">LDL-Cholest [facility] </content>86 MG/DL<content styleCode="Josy lics"> (< 100 MG/DL)</conten t> Cholesterol -<200 <content [facility] [Mass/volume] in styleCode="[facility] Serum or Plasma d">Cholesterol Medical </content>150 Center MG/DL<content styleCode="Josy lics"> (-<200 MG/DL)</conten t> UNK > 60 Below low normal <content Saint styleCode="[place]berta Art d">HDL- Medical Cholesterol Center </content>52 MG/DL L<content styleCode="Josy lics"> (> 60 MG/DL)</conten t> ID Date Data Source [id number] 05/13/2020 05:59:[address] [facility] -0400 Name Value Range Interpretation Code Description Data Alyssa rce(s) Supporting Document(s ) UNK 4.2-5.8 <content [facility] styleCode="Bold" Medical Cente r >Hemoglobin A1C </content>5.6 %<content styleCode="Itali cs"> (4.2-5.8 %)</content> ID Date Data Source [id number] 05/12/2020 09:34:00 PM EDT [facility] Name Value Range Interpretation Code Description Data Alyssa rce(s) Supporting Document(s ) COV2 [facility] This lab was ordered by [facility] and reported by [facility]. ID Date Data Source Liver 05/12/2020 08:59:00 PM EDT [facility] [id number] Name Value Range Interpretation Description Data Sup [...] (3.5-5.0 G/DL)</content> UNK 0.0-0.3 <content Saint styleCode="Bold"> Art Bilirubin, Direct Medical </content>< 0.2 Center MG/DL<content styleCode="Italic s"> (0.0-0.3 MG/DL)</content> ID Date Data Source [id number] 05/12/2020 08:59:00 PM EDT [facility] 0400 Name Value Range Interpretation Description [...] ics"> (0 /100)</content> ID Date Data Source GFR(Creatinine).[id number] 05/12/2020 08:59:00 PM EDT [facility] 0-0400 Name Value Range Interpretation Code Description Data Alyssa rce(s) Supporting Document(s ) UNK > 60 <content [facility] styleCode="Bold"> Medical Cent er EGFR </content>111 GFR<content styleCode="Italic s"> (> 60 GFR)</content> ID Date Data Source [id number] 05/12/2020 08:59:00 PM EDT [facility] Name Value Range Interpretation Description Data Sup porting Code Source(s) Document(s ) Potassium 3.5-5.3 <content Saint [Moles/volume] in styleCode="Bold"> [facility] Serum or Plasma Potassium Medical </content>3.8 Center MEQ/L<content styleCode="Italic s"> (3.5-5.3 MEQ/L)</content> Sodium 137-145 <content Saint [Moles/volume] in styleCode="Bold"> [facility] Serum or Plasma Sodium Medical </content>138 Center [...] ever completed Unknown if ever Whit e [place] smoked smoked Hospital Vital Signs ID Date Data Source UNK Name Value Range Interpretation Code Description Data Source(s) Diastolic blood 78 mmHg 78 mmHg [facility] Systolic blood 105 mmHg 105 mmHg [facility] Respiratory rate 18 bpm 18 bpm [facility] Heart rate 87 bpm 87 bpm [facility] Body temperature 98.2 Fahrenheit 98.2 Fahrenhei t [facility] Diastolic blood 74 mmHg 74 mmHg [facility] Systolic blood 109 mmHg 109 mmHg [facility] Heart rate 75 bpm 75 bpm [facility] Diastolic blood 58 mmHg 58 mmHg [facility] Systolic blood 112 mmHg 112 mmHg [facility] Respiratory rate 57 bpm 57 bpm [facility] Heart rate 57 bpm 57 bpm [facility] Body temperature 98.2 Fahrenheit 98.2 Fahrenhei t [facility] Respiratory rate 18 bpm 18 bpm [facility] Body temperature 97.1 Fahrenheit 97.1 Fahrenhei t [facility] Diastolic blood 75 mmHg 75 mmHg [facility] Systolic blood 113 mmHg 113 mmHg [facility] Heart rate 66 bpm 66 bpm [facility] Body weight 153 lbs 153 lbs [facility] Diastolic blood 73 mmHg 73 mmHg [facility] Systolic blood 109 mmHg 109 mmHg [facility] Respiratory rate 18 bpm 18 bpm [facility] Heart rate 62 bpm 62 bpm [facility] Body temperature 97.0 Fahrenheit 97.0 Fahrenhei t [facility] Body weight 153 lbs 153 lbs [facility] Diastolic blood 73 mmHg 73 mmHg [facility] Systolic blood 118 mmHg 118 mmHg [facility] Respiratory rate 18 bpm 18 bpm [facility] Heart rate 64 bpm 64 bpm [facility] Body temperature 97.0 Fahrenheit 97.0 Fahrenhei t [facility] Diastolic blood 76 mmHg 76 mmHg [facility] Systolic blood 127 mmHg 127 mmHg [facility] Heart rate 61 bpm 61 bpm [facility] Diastolic blood 73 mmHg 73 mmHg [facility] Systolic blood 115 mmHg 115 mmHg [facility] Heart rate 83 bpm 83 bpm [facility] Diastolic blood 73 mmHg 73 mmHg [facility] Systolic blood 116 mmHg 116 mmHg [facility] Heart rate 85 bpm 85 bpm [facility] Diastolic blood 71 mmHg 71 mmHg [facility] Systolic blood 116 mmHg 116 mmHg [facility] Heart rate 97 bpm 97 bpm [facility] Diastolic blood 75 mmHg 75 mmHg [facility] Systolic blood 126 mmHg 126 mmHg [facility] Respiratory rate 18 bpm 18 bpm [facility] Heart rate 76 bpm 76 bpm [facility] Body temperature 98.4 Fahrenheit 98.4 Fahrenhei t [facility] Body temperature 37.000178 Teresa 37.470454 Teresa [facility] Respiratory rate 18 /min 18 /min [facility] Oxygen 98 % 98 % Saint Art saturation in Medical Arterial blood Center by Pulse oximetry Heart rate 86 /min 86 /min [facility] Diastolic blood 60 mm[Hg] 60 mm[Hg] [facility] pressure Medical Center Systolic blood 109 mm[Hg] 109 mm[Hg] [facility] Medical Center Body temperature 37.469918 Teresa 37.929964 [facility] Respiratory rate 19 /min 19 /min [facility] Oxygen 98 % 98 % Helpers saturation in Medical Arterial blood Center by Pulse oximetry Heart rate 96 /min 96 /min [facility] Diastolic blood 75 mm[Hg] 75 mm[Hg] [facility] pressure Medical Center Systolic blood 124 mm[Hg] 124 mm[Hg] [facility] Medical Center Body temperature 37.821001 Teresa 37.895397 [facility] Respiratory rate 19 /min 19 /min [facility] Oxygen 99 % 99 % Hel[facility] saturation in Medical Arterial blood Center by Pulse oximetry Heart rate 94 /min 94 /min [facility] Diastolic blood 84 mm[Hg] 84 mm[Hg] [facility] Systolic blood 130 mm[Hg] 130 mm[Hg] [facility] Medical Center Body weight 74.226996 kg 74.042271 kg [facility] Medical Center Body temperature 36.407533 Teresa 36.985968 [facility] Respiratory rate 18 /min 18 /min [facility] Oxygen 100 % 100 % Helpers saturation in Medical Arterial blood Center by Pulse oximetry Heart rate 79 /min 79 /min [facility] Body height 172.237337 cm 172.855132 cm [facility] Diastolic blood 68 mm[Hg] 68 mm[Hg] [facility] pressure Medical Center Systolic blood 117 mm[Hg] 117 mm[Hg] [facility] Body mass index 24.8 kg/m2 24.8 kg/m2 [facility] (BMI) [Ratio] Medical Center Diastolic blood 72 mmHg 72 mmHg [facility] Systolic blood 113 mmHg 113 mmHg [facility] Respiratory rate 18 bpm 18 bpm [facility] Heart rate 104 bpm 104 bpm [facility] Diastolic blood 83 mmHg 83 mmHg [facility] Systolic blood 112 mmHg 112 mmHg [facility] Respiratory rate 18 bpm 18 bpm [facility] Heart rate 82 bpm 82 bpm [facility] Body temperature 98.2 Fahrenheit 98.2 Fahrenhei t [facility] Diastolic blood 70 mmHg 70 mmHg [facility] Systolic blood 104 mmHg 104 mmHg [facility] Respiratory rate 18 bpm 18 bpm [facility] Heart rate 99 bpm 99 bpm [facility] Body temperature 98.1 Fahrenheit 98.1 Fahrenhei t [facility] Diastolic blood 74 mmHg 74 mmHg [facility] Systolic blood 110 mmHg 110 mmHg [facility] Respiratory rate 18 bpm 18 bpm [facility] Heart rate 88 bpm 88 bpm [facility] Body temperature 98.1 Fahrenheit 98.1 Fahrenhei t [facility] Diastolic blood 72 mmHg 72 mmHg [facility] Systolic blood 111 mmHg 111 mmHg [facility] Heart rate 79 bpm 79 bpm [facility] Diastolic blood 69 mmHg 69 mmHg [facility] Systolic blood 107 mmHg 107 mmHg [facility] Respiratory rate 18 bpm 18 bpm [facility] Heart rate 82 bpm 82 bpm [facility] Body temperature 97.4 Fahrenheit 97.4 Fahrenhei t [facility] Diastolic blood 73 mmHg 73 mmHg [facility] Systolic blood 123 mmHg 123 mmHg [facility] Heart rate 87 bpm 87 bpm [facility] Body weight 144 lbs 144 lbs [facility] Diastolic blood 71 mmHg 71 mmHg [facility] Systolic blood 118 mmHg 118 mmHg [facility] Respiratory rate 16 bpm 16 bpm [facility] Heart rate 83 bpm 83 bpm [facility] Body temperature 98.4 Fahrenheit 98.4 Fahrenhei t [facility] Diastolic blood 72 mmHg 72 mmHg [facility] Systolic blood 106 mmHg 106 mmHg [facility] Heart rate 66 bpm 66 bpm [facility] Diastolic blood 64 mmHg 64 mmHg [facility] Systolic blood 109 mmHg 109 mmHg [facility] Respiratory rate 18 bpm 18 bpm [facility] Heart rate 56 bpm 56 bpm [facility] Body temperature 97.4 Fahrenheit 97.4 Fahrenhei t [facility] Diastolic blood 59 mm[Hg] 59 mm[Hg] [facility] Systolic blood 125 mm[Hg] 125 mm[Hg] [facility] Hospital Respiratory rate 18 /min 18 /min [facility] Heart rate 80 /min 80 /min [facility] Body temperature 36.43519 Teresa 36.38848 Teresa [facility] Body temperature 97.9 [degF] 97.9 [degF] [facility] Body mass index 20.0 kg/m2 20.0 kg/m2 [facility] ins (BMI) [Ratio] Hospital Body weight 139.29 [lb_av] 139.29 [lb_av] [facility] Body temperature 98.6 Fahrenheit 98.6 Fahrenh t [facility] Diastolic blood 71 mmHg 71 mmHg [facility] Systolic blood 105 mmHg 105 mmHg [facility] Respiratory rate 18 bpm 18 bpm [facility] Heart rate 86 bpm 86 bpm [facility] Body temperature 98.9 Fahrenheit 98.9 Fahrenh t [facility] Diastolic blood 65 mmHg 65 mmHg [facility] Systolic blood 102 mmHg 102 mmHg [facility] Respiratory rate 18 bpm 18 bpm [facility] Heart rate 90 bpm 90 bpm [facility] Diastolic blood 72 mmHg 72 mmHg [facility] Systolic blood 111 mmHg 111 mmHg [facility] Heart rate 79 bpm 79 bpm [facility] Heart rate 72 bpm 72 bpm [facility] Body temperature 97.1 [facility] 70 mmHg 70 mmHg [facility] Systolic blood 112 mmHg 112 mmHg [facility] Respiratory rate 18 bpm 18 bpm [facility] Body weight 133 lbs 133 lbs [facility] Diastolic blood 66 mmHg 66 mmHg [facility] Systolic blood 105 mmHg 105 mmHg [facility] Respiratory rate 18 bpm 18 bpm [facility] Heart rate 71 bpm 71 bpm [facility] Body temperature 97.8 Fahrenheit 97.8 Fahrenh t [facility] Body temperature 36.274466 Teresa 36.379916 [facility] Respiratory rate 18 /min 18 /min [facility] Oxygen 99 % 99 % [facility] saturation in Medical Arterial blood Center by Pulse oximetry Heart rate 18 /min 18 /min [facility] Diastolic blood 78 mm[Hg] 78 mm[Hg] [facility] Systolic blood 128 mm[Hg] 128 mm[Hg] [facility] Medical Center Body temperature 36.894880 Teresa 36.702539 [facility] Respiratory rate 18 /min 18 /min [facility] Oxygen 98 % 98 % [facility] Art saturation in Medical Arterial blood Center by Pulse oximetry Heart rate 92 /min 92 /min [facility] Diastolic blood 81 mm[Hg] 81 mm[Hg] [facility] Systolic blood 135 mm[Hg] 135 mm[Hg] [facility] Medical [place] Body temperature 36.119338 Teresa 36.704381 [facility] Respiratory rate 18 /min 18 /min [facility] Oxygen 100 % 100 % [facility] saturation in Medical Arterial blood Center by Pulse oximetry Heart rate 76 /min 76 /min [facility] Diastolic blood 71 mm[Hg] 71 mm[Hg] [facility] Systolic blood 144 mm[Hg] 144 mm[Hg] [facility] Body temperature 36.583314 Teresa 36.994333 [facility] Respiratory rate 18 /min 18 /min [facility] Oxygen 97 % 97 % [facility] Art saturation in Medical Arterial blood Center by Pulse oximetry Heart rate 81 /min 81 /min [facility] Diastolic blood 78 mm[Hg] 78 mm[Hg] [facility] Systolic blood 132 mm[Hg] 132 mm[Hg] [facility] Medical [place] Body weight 85.834209 kg 85.364362 kg [facility] Center Body temperature 37.348730 Teresa 37.482542 [facility] Respiratory rate 18 /min 18 /min [facility] Oxygen 98 % 98 % [facility] saturation in Medical Arterial blood Center by Pulse oximetry Heart rate 79 /min 79 /min [facility] Body height 170.359718 cm 170.688502 cm [facility] Diastolic blood 78 mm[Hg] 78 mm[Hg] [facility] pressure Medical Center Systolic blood 135 mm[Hg] 135 mm[Hg] [facility] Medical Center Body mass index 29.3 kg/m2 29.3 kg/m2 [facility] (BMI) [Ratio] Medical Center Diastolic blood 80 mmHg 80 mmHg [facility] Systolic blood 113 mmHg 113 mmHg [facility] Heart rate 96 bpm 96 bpm [facility] Diastolic blood 79 mmHg 79 mmHg [facility] Systolic blood 118 mmHg 118 mmHg [facility] Respiratory rate 18 bpm 18 bpm [facility] Heart rate 80 bpm 80 bpm [facility] Body temperature 97.1 Fahrenheit 97.1 Fahrenhei t [facility] Diastolic blood 76 mmHg 76 mmHg [facility] Systolic blood 115 mmHg 115 mmHg [facility] Respiratory rate 18 bpm 18 bpm [facility] Heart rate 77 bpm 77 bpm [facility] Body temperature 97.1 Fahrenheit 97.1 Fahrenhei t [facility] Diastolic blood 68 mmHg 68 mmHg [facility] Systolic blood 105 mmHg 105 mmHg [facility] Heart rate 92 bpm 92 bpm [facility] Diastolic blood 73 mmHg 73 mmHg [facility] Systolic blood 115 mmHg 115 mmHg [facility] Respiratory rate 18 bpm 18 bpm [facility] Heart rate 72 bpm 72 bpm [facility] Body temperature 96.9 Fahrenheit 96.9 Fahrenhei t [facility] Diastolic blood 67 mmHg 67 mmHg [facility] Systolic blood 110 mmHg 110 mmHg [facility] Respiratory rate 18 bpm 18 bpm [facility] Heart rate 117 bpm 117 bpm [facility] Body temperature 97.4 Fahrenheit 97.4 Fahrenhei t [facility] Diastolic blood 78 mmHg 78 mmHg [facility] Systolic blood 118 mmHg 118 mmHg [facility] Respiratory rate 18 bpm 18 bpm [facility] Heart rate 88 bpm 88 bpm [facility] Body temperature 97.4 Fahrenheit 97.4 Fahrenhei t [facility] Body temperature 97.2 Fahrenheit 97.2 Fahrenhei t [facility] Diastolic blood 71 mmHg 71 mmHg [facility] Systolic blood 104 mmHg 104 mmHg [facility] Respiratory rate 18 bpm 18 bpm [facility] Heart rate 103 bpm 103 bpm [facility] Diastolic blood 78 mmHg 78 mmHg [facility] Systolic blood 123 mmHg 123 mmHg [facility] Heart rate 98 bpm 98 bpm [facility] Diastolic blood 83 mmHg 83 mmHg [facility] Systolic blood 123 mmHg 123 mmHg [facility] Respiratory rate 18 bpm 18 bpm [facility] Heart rate 89 bpm 89 bpm [facility] Body temperature 97.0 Fahrenheit 97.0 Fahrenhei t [facility] Respiratory rate 17 bpm 17 bpm [facility] Body temperature 96.6 Fahrenheit 96.6 Fahrenhei t [facility] Diastolic blood 70 mmHg 70 mmHg [facility] Systolic blood 114 mmHg 114 mmHg [facility] Heart rate 78 bpm 78 bpm [facility] Diastolic blood 66 mmHg 66 mmHg [facility] Systolic blood 106 mmHg 106 mmHg [facility] Heart rate 88 bpm 88 bpm [facility] Diastolic blood 68 mmHg 68 mmHg [facility] Systolic blood 112 mmHg 112 mmHg [facility] Respiratory rate 18 bpm 18 bpm [facility] Heart rate 70 bpm 70 bpm [facility] Body temperature 96.3 Fahrenheit 96.3 Fahrenhei t [facility] Diastolic blood 69 mmHg 69 mmHg [facility] Systolic blood 105 mmHg 105 mmHg [facility] Respiratory rate 18 bpm 18 bpm [facility] Heart rate 89 bpm 89 bpm [facility] Diastolic blood 76 mmHg 76 mmHg [facility] Systolic blood 112 mmHg 112 mmHg [facility] Respiratory rate 18 bpm 18 bpm [facility] Heart rate 80 bpm 80 bpm [facility] Body temperature 97.3 Fahrenheit 97.3 Fahrenhei t [facility] Diastolic blood 70 mmHg 70 mmHg [facility] Systolic blood 108 mmHg 108 mmHg [facility] Respiratory rate 18 bpm 18 bpm [facility] Heart rate 88 bpm 88 bpm [facility] Body weight 152 lbs 152 lbs [facility] Diastolic blood 72 mmHg 72 mmHg [facility] Systolic blood 108 mmHg 108 mmHg [facility] Respiratory rate 18 bpm 18 bpm [facility] Heart rate 70 bpm 70 bpm [facility] Body temperature 96.8 Fahrenheit 96.8 Fahrenhei t [facility] Diastolic blood 67 mmHg 67 mmHg [facility] Systolic blood 96 mmHg 96 mmHg [facility] Diastolic blood 70 mmHg 70 mmHg [facility] Systolic blood 107 mmHg 107 mmHg [facility] Respiratory rate 18 bpm 18 bpm [facility] Heart rate 81 bpm 81 bpm [facility] Body temperature 97 Fahrenheit 97 Fahrenheit [facility] Diastolic blood 71 mmHg 71 mmHg [facility] Systolic blood 109 mmHg 109 mmHg [facility] Heart rate 95 bpm 95 bpm [facility] Diastolic blood 73 mmHg 73 mmHg [facility] Systolic blood 112 mmHg 112 mmHg [facility] Respiratory rate 18 bpm 18 bpm [facility] Heart rate 85 bpm 85 bpm [facility] Body temperature 97.0 Fahrenheit 97.0 Fahrenhei t [facility] Diastolic blood 76 mmHg 76 mmHg [facility] Systolic blood 114 mmHg 114 mmHg [facility] Heart rate 102 bpm 102 bpm [facility] Diastolic blood 76 mmHg 76 mmHg [facility] Systolic blood 118 mmHg 118 mmHg [facility] Respiratory rate 18 bpm 18 bpm [facility] Heart rate 84 bpm 84 bpm [facility] Body temperature 97.0 Fahrenheit 97.0 Fahrenhei t [facility] Diastolic blood 76 mmHg 76 mmHg [facility] Systolic blood 106 mmHg 106 mmHg [facility] Respiratory rate 18 bpm 18 bpm [facility] Heart rate 107 bpm 107 bpm [facility] Body temperature 96.9 Fahrenheit 96.9 Fahrenhei t [facility] Diastolic blood 76 mmHg 76 mmHg [facility] Systolic blood 110 mmHg 110 mmHg [facility] Respiratory rate 18 bpm 18 bpm [facility] Heart rate 92 bpm 92 bpm [facility] Body temperature 96.9 Fahrenheit 96.9 Fahrenhei t [facility] Body temperature 96.0 Fahrenheit 96.0 Fahrenhei t [facility] Diastolic blood 71 mmHg 71 mmHg [facility] Systolic blood 115 mmHg 115 mmHg [facility] Respiratory rate 18 bpm 18 bpm [facility] Heart rate 73 bpm 73 bpm [facility] Body weight 151 lbs 151 lbs [facility] Diastolic blood 72 mmHg 72 mmHg [facility] Systolic blood 103 mmHg 103 mmHg [facility] Respiratory rate 18 bpm 18 bpm [facility] Heart rate 82 bpm 82 bpm [facility] Body temperature 96.9 Fahrenheit 96.9 Fahrenhei t [facility] Body weight 151 lbs 151 lbs [facility] Diastolic blood 70 mmHg 70 mmHg [facility] Systolic blood 104 mmHg 104 mmHg [facility] Respiratory rate 82 bpm 82 bpm [facility] Heart rate 70 bpm 70 bpm [facility] Body temperature 96.9 Fahrenheit 96.9 Fahrenhei t [facility] Diastolic blood 69 mmHg 69 mmHg [facility] Systolic blood 108 mmHg 108 mmHg [facility] Respiratory rate 18 bpm 18 bpm [facility] Heart rate 90 bpm 90 bpm [facility] Body temperature 97.1 Fahrenheit 97.1 Fahrenhei t [facility] Diastolic blood 69 mmHg 69 mmHg [facility] Systolic blood 114 mmHg 114 mmHg [facility] Respiratory rate 18 bpm 18 bpm [facility] Heart rate 68 bpm 68 bpm [facility] Body temperature 97.1 Fahrenheit 97.1 Fahrenhei t [facility] Diastolic blood 80 mmHg 80 mmHg [facility] Systolic blood 130 mmHg 130 mmHg [facility] Respiratory rate 18 bpm 18 bpm [facility] Heart rate 99 bpm 99 bpm [facility] Body temperature 93.2 Fahrenheit 93.2 Fahrenhei t [facility] Diastolic blood 75 mmHg 75 mmHg [facility] Systolic blood 121 mmHg 121 mmHg [facility] Respiratory rate 18 bpm 18 bpm [facility] Heart rate 75 bpm 75 bpm [facility] Body temperature 93.2 Fahrenheit 93.2 Fahrenhei t [facility] Diastolic blood 74 mmHg 74 mmHg [facility] Systolic blood 106 mmHg 106 mmHg [facility] Heart rate 78 bpm 78 bpm [facility] Diastolic blood 77 mmHg 77 mmHg [facility] Systolic blood 117 mmHg 117 mmHg [facility] Respiratory rate 18 bpm 18 bpm [facility] Heart rate 63 bpm 63 bpm [facility] Body temperature 97.1 Fahrenheit 97.1 Fahrenhei t [facility] Respiratory rate 17 bpm 17 bpm [facility] Body temperature 97.0 Fahrenheit 97.0 Fahrenhei t [facility] Diastolic blood 74 mmHg 74 mmHg [facility] Systolic blood 114 mmHg 114 mmHg [facility] Heart rate 66 bpm 66 bpm [facility] Diastolic blood 68 mmHg 68 mmHg [facility] Systolic blood 106 mmHg 106 mmHg [facility] Heart rate 74 bpm 74 bpm [facility] Diastolic blood 66 mmHg 66 mmHg [facility] Systolic blood 109 mmHg 109 mmHg [facility] Respiratory rate 19 bpm 19 bpm [facility] Heart rate 59 bpm 59 bpm [facility] Body temperature 97.1 Fahrenheit 97.1 Fahrenhei t [facility] Diastolic blood 65 mmHg 65 mmHg [facility] Systolic blood 102 mmHg 102 mmHg [facility] Respiratory rate 18 bpm 18 bpm [facility] Heart rate 93 bpm 93 bpm [facility] Body temperature 97.2 Fahrenheit 97.2 Fahrenhei t [facility] Diastolic blood 86 mmHg 86 mmHg [facility] Systolic blood 110 mmHg 110 mmHg [facility] Respiratory rate 18 bpm 18 bpm [facility] Heart rate 72 bpm 72 bpm [facility] Body temperature 97.2 Fahrenheit 97.2 Fahrenhei t [facility] Body weight 149 lbs 149 lbs [facility] Body weight 149 lbs 149 lbs [facility] Respiratory rate 17 bpm 17 bpm [facility] Body temperature 97.2 Fahrenheit 97.2 Fahrenhei t [facility] Diastolic blood 70 mmHg 70 mmHg [facility] Systolic blood 123 mmHg 123 mmHg [facility] Heart rate 64 bpm 64 bpm [facility] Diastolic blood 67 mmHg 67 mmHg [facility] Systolic blood 117 mmHg 117 mmHg [facility] Respiratory rate 18 bpm 18 bpm [facility] Heart rate 71 bpm 71 bpm [facility] Body temperature 97.5 Fahrenheit 97.5 Fahrenhei t [facility] Diastolic blood 66 mmHg 66 mmHg [facility] Systolic blood 116 mmHg 116 mmHg [facility] Respiratory rate 18 bpm 18 bpm [facility] Heart rate 55 bpm 55 bpm [facility] Body temperature 97.5 Fahrenheit 97.5 Fahrenhei t [facility] Diastolic blood 66 mmHg 66 mmHg [facility] Systolic blood 107 mmHg 107 mmHg [facility] Respiratory rate 18 bpm 18 bpm [facility] Heart rate 87 bpm 87 bpm [facility] Body temperature 96.5 Fahrenheit 96.5 Fahrenhei t [facility] Diastolic blood 66 mmHg 66 mmHg [facility] Systolic blood 118 mmHg 118 mmHg [facility] Heart rate 82 bpm 82 bpm [facility] Diastolic blood 64 mmHg 64 mmHg [facility] Systolic blood 117 mmHg 117 mmHg [facility] Respiratory rate 17 bpm 17 bpm [facility] Heart rate 80 bpm 80 bpm [facility] Body temperature 96.0 Fahrenheit 96.0 [facility] ID Date Data Source [id number] 08/19/2020 02:27:38 PM EDT [facility] Name Value Range Interpretation Code Description Data Source(s) Body weight Measured 153 lb 153 lb [facility] Body weight Measured 144 lb 144 lb [facility] ID Date Data Source [id number] 07/27/2020 10:43:20 PM EDT [facility] Name Value Range Interpretation Code Description Data Source(s) Body weight Measured 144 lb 144 lb [facility] ID Date Data Source [id number] 2020 09:05:06 PM EDT [facility] Name Value Range Interpretation Code Description Data Source(s) Body weight Measured 144 lb 144 lb [facility] ID Date Data Source [id number] 07/16/2020 11:43:13 AM EDT [facility] Name Value Range Interpretation Code Description Data Source(s) Body weight Measured 144 lb 144 lb [facility] ID Date Data Source [id number] 07/03/2020 12:18:53 PM EDT [facility] Name Value Range Interpretation Code Description Data Source(s) Body weight Measured 144 lb 144 lb [facility] Body weight Measured 133 lb 133 lb [facility] Body weight Measured 152 lb 152 lb [facility] ID Date Data Source [id number] 05/15/2020 02:35:53 PM EDT [facility] Name Value Range Interpretation Code Description Data Source(s) Body weight Measured 152 lb 152 lb [facility]
== END 2020-08-20 13:17 | disposition home or self-care (01) ==
LOC: JERFT 12:19
DX: Z48.00 Encounter for change or removal of nonsurgical wound dressing (principal)
CPT/HCPCS: 99281-25

== ENCOUNTER 2020-11-27 19:24 | Emergency (ER) | payer OTHER ==
[2020-11-27 20:01] VITALS: BP 117/78; PULSE 76; TEMP 98.2; BMI 22.1
== END 2020-11-27 21:00 | disposition home or self-care (01) ==
LOC: JER 19:24 → JERFT 19:24
DX: N53.19 Other ejaculatory dysfunction (principal)
CPT/HCPCS: 99281-25

== ENCOUNTER 2021-06-23 16:00 | Emergency (ER) | payer OTHER ==
[2021-06-23 16:22] VITALS: BP 101/60; PULSE 90; TEMP 97.1; BMI 25.8
== END 2021-06-23 17:35 | disposition left against medical advice (07) ==
LOC: JERFT 16:00 → JER 16:00 → JERFT 17:35
DX: R60.1 Generalized edema (principal)
CPT/HCPCS: 99281-25

== ENCOUNTER 2022-10-07 11:53 | Emergency (ER) | payer OTHER ==
[2022-10-07 12:04] VITALS: BP 111/73; PULSE 97; RESP 18; TEMP 97.4; BMI 25.8
== END 2022-10-07 13:10 | disposition home or self-care (01) ==
LOC: JER 11:53 → JERFT 11:53
DX: L29.9 Pruritus, unspecified (principal); L30.9 Dermatitis, unspecified
CPT/HCPCS: 99282-25